=== PATIENT | female | born 1940 | race African-American/Black ===

== ENCOUNTER 2018-10-19 10:51 | Inpatient (IN) | payer OTHER ==
[2018-10-19 11:14] LABS: BASO % 0.5 % (0-2.0); EOS % 2.3 % (0-4.5); HEMATOCRIT 43.6 % (32.4-45.2); HEMOGLOBIN 14.1 GM/dL (10.7-15.3); LYMPH % 27.1 % (8-40); MCH 27.6 pg (25.7-33.7); MCHC 32.3 g/dl (32.0-36.0); MEAN CELL VOLUME 85.5 fl (80-96); MEAN PLT VOLUME 9.5 fl (7.5-11.1); MONO % 5.3 % (3.8-10.2); NEUT % 64.8 % (42.8-82.8); PLATELET COUNT 304 K/MM3 (134-434); RDW 13.2 % (11.6-15.6)
[2018-10-19 11:17] LABS: INR 0.91 (0.83-1.09); PROTHROMBIN TIME (PATIENT) 10.7 SEC (9.7-13.0)
--- NOTE | 2018-10-19 11:20 | PDOC ---
History of Present Illness - General Chief Complaint: CVA/TIA Stated Complaint: WEAKNESS, DIZZINESS Time Seen by Provider: 10/19/18 11:00 - History of Present Illness Initial Comments: 10/19/18 11:16 78yo F hx HTN, NIDDM presents to the ED with garbled speech and L sided weakness since waking up this morning. Last known normal was last night when she opened the door to their home for her daughter at 9pm. Daughter Yancy reports pt had complaint of room spinning dizziness last night but speech was normal, pt had no L sided weakness. No hx similar sxs. No hx afib. Reports mild global headache that has come on gradually since this AM. Reports L sided weakness is better now, but daughter notes speech has not improved. Denies cp, sob, fevers, chills, stiff neck, abd pain, LE edema, urinary sxs. FS 248. Past History - Past Medical History Allergies/Adverse Reactions: Allergies Allergy/AdvReac Type Severity Reaction Status Date / Time No Known Allergies Allergy Verified 10/19/18 11:03 Home Medications: Ambulatory Orders Hydrochlorothiazide [Hctz -] 25 mg PO DAILY 04/21/16 Metformin HCl [Glucophage] 1,000 mg PO DAILY 04/21/16 Metoprolol Succinate [Toprol Xl] 50 mg PO DAILY 04/21/16 COPD: No Diabetes: Yes HTN: Yes - Surgical History Abdominal Surgery: Yes (HERNIA) - Suicide/Smoking/Psychosocial Hx Smoking History: Never smoked Hx Alcohol Use: No Drug/Substance Use Hx: No Substance Use Type: None Review of Systems - Review of Systems Comments:: 10/19/18 11:28 GENERAL/CONSTITUTIONAL: No fever or chills. No weakness. HEAD, EYES, EARS, NOSE AND THROAT: No change in vision. No ear pain or discharge. No sore throat. GASTROINTESTINAL: No nausea, vomiting, diarrhea or constipation. GENITOURINARY: No dysuria, frequency, or change in urination. CARDIOVASCULAR: No chest pain or shortness of breath. RESPIRATORY: No cough, wheezing, or hemoptysis. MUSCULOSKELETAL: No joint or muscle swelling or pain. No neck or back pain. SKIN: No rash NEUROLOGIC: +headache, +vertigo, +garbled speech, +L sided weakness ENDOCRINE: No increased thirst. No abnormal weight change. HEMATOLOGIC/LYMPHATIC: No anemia, easy bleeding, or history of blood clots. ALLERGIC/IMMUNOLOGIC: No hives or skin allergy. *Physical Exam - Vital Signs Last Vital Signs Temp Pulse Resp BP Pulse Ox 97.9 F 78 16 236/88 H 99 10/19/18 11:00 10/19/18 11:00 10/19/18 11:00 10/19/18 11:00 10/19/18 11:00 - Physical Exam Comments: 10/19/18 11:40 GENERAL: Awake, alert, and fully oriented, in no acute distress HEAD: No signs of trauma EYES: PERRLA, EOMI, sclera anicteric, conjunctiva clear ENT: Auricles normal inspection, hearing grossly normal, nares patent, oropharynx clear without exudates. Moist mucosa NECK: Normal ROM, supple, no lymphadenopathy, JVD, or masses LUNGS: Breath sounds equal, clear to auscultation bilaterally. No wheezes, and no crackles HEART: Regular rate and rhythm, normal S1 and S2, no murmurs, rubs or gallops ABDOMEN: Soft, nontender, normoactive bowel sounds. No guarding, no rebound. No masses EXTREMITIES: Normal range of motion, no edema. No clubbing or cyanosis. No cords, erythema, or tenderness NEUROLOGICAL: +Word finding difficulty, +slurred speech, cranial nerves intact , negative pronator drift, 5/5 strength in all 4 extremities, normal sensation to light touch in all 4 extremities, normal cerebellar exam, normal gait, normal reflexes and tone SKIN: Warm, Dry, normal turgor, no rashes or lesions noted. NIH Stroke Scale - Last Known Well Date/Time & Onset Date Last Known Well: 10/18/18 Time Last Known Well: 21:00 - Initial Evaluation Level of consciousness: Alert Ask patient the month and their age: Answers both correctly Ask patient to open & close eyes; make fist and let go: Obeys both correctly Best gaze (horizontal eye movement): Normal Visual field testing: No visual field loss Facial paresis (Show teeth/raise eyebrows/close eyes tight): Minor paralysis ( flattened nasolabial fold, asymmetry on smiling) Motor Function: Left Arm: Normal Motor Function: Right Arm: Normal (extends arm 90 (or 45) degrees for 10 seconds without drift Motor Function: Left Leg: Normal (extends leg 30 degrees for 5 seconds without drift) Motor Function: Right Leg: Normal (extends leg 30 degrees for 5 seconds without drift) Limb Ataxia: No ataxia Sensory(Use pinprick test arms,legs,trunk,face/side to side): Normal Best language (Describe picture, name items, read sentences): Mild to moderate aphasia Dysarthria (read several words): Mild to moderate slurring of words Extinction and Inattention: No abnormality - Total Score NIH Stroke Scale Score: 3 Heart Score/ECG Review #1 10/19/18 11:44 Twelve-lead EKG was performed and reviewed by me. Normal sinus rhythm, rate 76. Normal axis. No ST elevations. Biphasic T waves in aVL and V4-V6. Critical Care Time/MDM Note - Medical Decision Making Note: 10/19/18 11:44 78yo hx HTN, DM presents with slurred speech, and L sided weakness that has since improved concerning for CVA vs TIA vs infection vs electrolyte abnormality. Vitals with HTN to 218/79. Exam with slurred speech and word finding difficulty, but strength equal b/l with no pronator drift. CTH negative , CTA done, read pending. Plan for labs, xr, ua, neuro c/s and admit vs transfer. 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 Garcia awaiting a call back 10/19/18 13:00 Pt had 9 beat run of Vtach, completely asymptomatic at the time Discussed with Dr. Pollard from cards who will evaluate Pt took her metoprolol last night as she usually does Dr. Garcia paged again, awaiting call back 10/19/18 13:[address] Garcia who is on his way in to evaluate 10/19/18 14:15 Dr. Garcia recommends lopressor 2.5mg IV for BP 199/99 Lopressor ordered and given Case admitted to Dr. Knight Case discussed in detail with admitting physician including history, physical exam and ancillary studies. Admitting physician has assumed care for the patient, will follow all pending diagnostics and will complete the evaluation and treatment. *DC/Admit/Observation/Transfer Diagnosis at time of Disposition: Cerebrovascular accident (CVA), V-tach, HTN (hypertension) - Discharge Dispostion Condition at time of disposition: Stable Decision to Admit order: Yes - Referrals Referrals: Gamaliel Blackwell MD [Primary Care Provider] - - Patient Instructions - Post Discharge Activity - Attestations Physician Attestion: 10/19/18 14:06 I, Dr. Tammy Barroso MD, attest that this document has been prepared under my direction and personally reviewed by me in its entirety. I further attest, that it accurately reflects all work, treatment, procedures and medical decision -making performed by me.
[2018-10-19] MEDS: SODIUM CHLORIDE 1,000 ML IV SCH ×2 (11:30→17:01)
[2018-10-19 11:39] LABS: ALBUMIN 3.7 g/dl (3.4-5.0); ALK PHOS 123 U/L (45-117); ANION GAP 9 MMOL/L (8-16); BILIRUBIN,TOTAL 0.4 mg/dL (0.2-1); BLOOD UREA NITROGEN 10 mg/dL (7-18); CALCIUM 9.3 mg/dL (8.5-10.1); CHLORIDE 97 mmol/L (98-107); CHOLESTEROL 282 mg/dL (50-200); CO2 31 mmol/L (21-32); CREATININE 0.8 mg/dL (0.55-1.3); GLUCOSE,RANDOM 242 mg/dL (74-106); HDL CHOLESTEROL 60 mg/dL (40-60); POTASSIUM 3.6 mmol/L (3.5-5.1); SGOT/AST 15 U/L (15-37); SGPT/ALT 19 U/L (13-61); SODIUM 136 mmol/L (136-145); TOT PROT 7.6 g/dl (6.4-8.2); TRIGLYCERIDES 220 mg/dL (0-150)
--- NOTE | 2018-10-19 12:17 | EKG ---
Test Reason : Blood Pressure : / mmHG Vent. Rate : 076 BPM Atrial Rate : 076 BPM P-R Int : 138 ms QRS Dur : 078 ms QT Int : 398 ms P-R-T Axes : 056 018 111 degrees QTc Int : 447 ms NORMAL SINUS RHYTHM VOLTAGE CRITERIA FOR LEFT VENTRICULAR HYPERTROPHY NONSPECIFIC T WAVE ABNORMALITY ABNORMAL ECG NO PREVIOUS ECGS AVAILABLE Confirmed by Sergo Russ ([id number]) on 10/19/2018 12:16:32 PM Referred By: Confirmed By:Sergo Russ
[2018-10-19] MEDS ORDERED: METOPROLOL TARTRATE 5 MG/5 ML VIAL ONE (14:12)
[2018-10-19] MEDS ORDERED: METOPROLOL TARTRATE 5 MG/5 ML VIAL IVPUSH ONE (14:26)
[2018-10-19 14:31] LABS: URINE APPEARANCE CLEAR; URINE BILIRUBIN NEGATIVE (<2.0 mg/dL); URINE COLOR STRAW; URINE GLUCOSE (UA) 3+ (NEGATIVE); URINE KETONE NEGATIVE (NEGATIVE); URINE LEUK ESTERASE 1+ (NEGATIVE); URINE NITRITE NEGATIVE (NEGATIVE); URINE PROTEIN 2+ (NEGATIVE); URINE UROBILINOGEN NEGATIVE mg/dL (0.2-1.0)
[2018-10-19 14:42] LABS: EPI CELLS RARE /HPF (FEW); URINE BACTERIA RARE /hpf (NONE SEEN); URINE HYALINE CAST 1 /lpf; URINE MUCUS RARE
[2018-10-19] MEDS ORDERED: ACETAMINOPHEN 325 MG TABLET (FP) PO PRN (14:43)
--- NOTE | 2018-10-19 14:52 | HP ---
Admitting History and Physical - Primary Care Physician PCP: Gamaliel Blackwell - Admission Chief Complaint: My leg was weak History of Present Illness: Ms Anita Dean is a very pleasant 78 year old female who comes in with a stroke. She was in her normal state of health last night. When she woke up this morning she noted that she was dizzy and had weakness in her L arm and leg. She lives with her daughter and her daughter noted slurred speech and a slight R sided facial droop. Because of this she came in. She denies fevers, chills, passing out, chest pain or pressure, shortness of breath, diarrhea, constipation , difficulty or pain on urination, or swelling. She did have one episode of non- bloody, non-bilious emesis on the ride here but that has resolved. History Source: Patient Limitations to Obtaining History: No Limitations - Past Medical History Cardiovascular: Yes: HTN Endocrine: Yes: Diabetes Mellitus - Past Surgical History Past Surgical History: Yes: (x2), Hernia Repair - Smoking History Smoking history: Never smoked - Alcohol/Substance Use Hx Alcohol Use: No History of Substance Use: reports: None - Social History Usual Living Arrangement: Yes: With Child ADL: Independent History of Recent Travel: No Home Medications - Allergies Allergies/Adverse Reactions: Allergies Allergy/AdvReac Type Severity Reaction Status Date / Time No Known Allergies Allergy Verified 10/19/18 11:03 - Home Medications Home Medications: Ambulatory Orders Hydrochlorothiazide [Hctz -] 25 mg PO DAILY 04/21/16 Metformin HCl [Glucophage] 1,000 mg PO DAILY 04/21/16 Metoprolol Succinate [Toprol Xl] 50 mg PO DAILY 04/21/16 Family Disease History - Family Disease History Family Disease History: CA: Mother Review of Systems Findings/Remarks: Full review of systems obtained, as per HPI and otherwise negative. Physical Examination Vital Signs: Vital Signs Temperature 36.6 C 10/19/18 11:00 Pulse Rate 67 10/19/18 14:43 Respiratory Rate 17 10/19/18 14:43 Blood Pressure 193/91 H 10/19/18 14:43 O2 Sat by Pulse Oximetry (%) 100 10/19/18 14:43 Constitutional: Yes: Well Nourished, No Distress, Calm Eyes: Yes: Conjunctiva Clear, EOM Intact, PERRL HENT: Yes: Atraumatic, Normocephalic Cardiovascular: Yes: Regular Rate and Rhythm. No: Gallop, Murmur, Rub Respiratory: Yes: Regular, CTA Bilaterally. No: Rales, Rhonchi, Wheezes Gastrointestinal: Yes: Normal Bowel Sounds, Soft. No: Distention, Tenderness Extremities: Yes: WNL Edema: No Neurological: Yes: Alert, Oriented ...Motor Strength: LUE (4/5), LLE (4/5) Labs: CBC, BMP 10/19/18 11:00 10/19/18 11:01 Imaging - Results Chest X-ray: Report Reviewed, Image Reviewed Cat Scan: Report Reviewed Problem List - Problems (1) Cerebrovascular accident (CVA) Assessment/Plan: -patient found to have acute CVA on CTA -outside the window for tPA -appreciate Dr Garcia's assistance and case discussed -admit to telemetry -PT/ST consults -start aspirin and lipitor -will order MRI Code(s): I63.9 - CEREBRAL INFARCTION, UNSPECIFIED Qualifiers: CVA mechanism: embolism Precerebral and cerebral artery: middle cerebral artery Laterality of affected vessel: right Qualified Code(s): I63.411 - Cerebral infarction due to embolism of right middle cerebral artery (2) HTN (hypertension) Assessment/Plan: -patient prescribed metoprolol 50mg bid -states takes it once a day -suspect has high blood pressure as an outpatient -significantly elevated here -given metoprolol 2.5mg IV x1 in the ED -will start metoprolol 5mg IV q4h prn SBP greater than 170 -will adjust per Dr Garcia's orders Code(s): I10 - ESSENTIAL (PRIMARY) HYPERTENSION (3) HLD (hyperlipidemia) Assessment/Plan: -elevated LDL -start full strength lipitor Code(s): E78.5 - HYPERLIPIDEMIA, UNSPECIFIED (4) V-tach Assessment/Plan: -run of v-tach seen on telemetry -currently sinus rhythm -cardiology consulted Code(s): I47.2 - VENTRICULAR TACHYCARDIA (5) Diabetes Assessment/Plan: -currently npo until seen by speech -coughed with drinking water on exam -when safe to swallow, diabetic diet -FSBS and SSI -check HgbA1c -on metformin as an outpatient Code(s): E11.9 - TYPE 2 DIABETES MELLITUS WITHOUT COMPLICATIONS
--- NOTE | 2018-10-19 15:14 | CON.NEURO ---
Consult Consult Specialty:: Jose Referred by:: ER Reason for Consultation:: CVA - History of Present Illness History of Present Illness: this is a 78-year-old right-handed Pashto-speaking female patient with present medical history significant for 1. Coronary artery disease. 2. Senile dementia. 3. Hypertension 4. Diabetes [id number] 5. Osteoarthritis Patient presents with to the hospital being brought by her daughter who found the patient with difficulty with the speech and questionable left arm weakness. Stroke protocol was initiated in the emergency room immediate CAT scan of the head revealed no evidence of acute [employer] pathology. Patient stroke scale was 3 Patient was not a candidate for thrombolysis for 2 reasons 1. Patient's last known normal was 6 PM October 18. 2. Left arm weakness was getting better according to the emergency room doctor and the family member. Patient's daughter still sees that the right facial droopiness. Patient was stabilized hemodynamically as her blood pressure was high.patient was in sinus rhythm patient was not on aspirin at home. In the emergency room patient was a poor historian most of the history was obtained from the daughter and the medical records. patient received 2.5 mg of Lopressor IV. Her mean arterial pressure was 1:30. Case was discussed with the emergency room doctor and the primary care physician onadmission that the patient is not a candidate fortertiary stroke care even with the results of the CT angiogram. - History Source History Provided By: Family Member, Medical Record Limitations to Obtaining History: Clinical Condition - Alcohol/Substance Use Hx Alcohol Use: No - Smoking History Smoking history: Never smoked Home Medications - Allergies Allergies/Adverse Reactions: Allergies Allergy/AdvReac Type Severity Reaction Status Date / Time No Known Allergies Allergy Verified 10/19/18 11:03 - Home Medications Home Medications: Ambulatory Orders Hydrochlorothiazide [Hctz -] 25 mg PO DAILY 04/21/16 Metformin HCl [Glucophage] 1,000 mg PO DAILY 04/21/16 Metoprolol Succinate [Toprol Xl] 50 mg PO DAILY 04/21/16 Family Disease History - Family Disease History Family History: Unable to Obtain Review of Systems - Review of Systems Constitutional: reports: No Symptoms Eyes: reports: No Symptoms Neurological: reports: No Symptoms Physical Exam-Neuro Vital Signs: Vital Signs Temperature 97.9 F 10/19/18 11:00 Pulse Rate 70 10/19/18 14:55 Respiratory Rate 17 10/19/18 14:55 Blood Pressure 162/80 10/19/18 14:55 O2 Sat by Pulse Oximetry (%) 100 10/19/18 14:55 Constitutional: Yes: Well Nourished Neck: Yes: WNL Labs: CBC, BMP 10/19/18 11:00 10/19/18 11:01 INR, PTT INR 0.91 (0.83-1.09) 10/19/18 11:00 - Neuro Exam Level Of Consciousness: Yes: Oriented to Person, Oriented to Place Eyes: Yes: PERRLA Speech: Other (more lingual dysarthria) Dominant Hand: Right Mini Mental Exam: 20 Cranial Nerves II-XII Intact: Yes Gag: Present DTR's: 1+ Left Bicep, 1+ Right Bicep, 1+ Left Brachioradialis, 1+ Right Brachioradialis Response to light touch: Normal Response to pain prick: Normal Response to temperature: Normal Response to vibration: Normal Motor Strength: 3/5: Left Arm, 4/5: Right Arm, Left Leg, Right Leg NIH Stroke Scale - Last Known Well Date/Time & Onset Date Last Known Well: 10/18/18 Time Last Known Well: 18:00 - Initial Evaluation Level of consciousness: Alert Ask patient the month and their age: Answers both correctly Ask patient to open & close eyes; make fist and let go: Obeys both correctly Best gaze (horizontal eye movement): Normal Visual field testing: No visual field loss Facial paresis (Show teeth/raise eyebrows/close eyes tight): Minor paralysis ( flattened nasolabial fold, asymmetry on smiling) Motor Function: Left Arm: Normal Motor Function: Right Arm: Normal (extends arm 90 (or 45) degrees for 10 seconds without drift Motor Function: Left Leg: Normal (extends leg 30 degrees for 5 seconds without drift) Motor Function: Right Leg: Normal (extends leg 30 degrees for 5 seconds without drift) Limb Ataxia: No ataxia Sensory(Use pinprick test arms,legs,trunk,face/side to side): Mild to moderate decrease in sensation Best language (Describe picture, name items, read sentences): No Aphasia Dysarthria (read several words): Mild to moderate slurring of words Extinction and Inattention: No abnormality - Total Score NIH Stroke Scale Score: 3 Imaging - Results Cat Scan: Image Reviewed Problem List - Problems (1) Cerebrovascular accident (CVA) Assessment/Plan: Stroke localization with this case is challenging given the fact that she has right facial droopiness with resolving left arm weakness and lingual dysarthria the combination patient points to a brainstem stroke. CAT scan of the head was reviewed Edward see an abnormal signal very faint at the siphon of the right carotid with the right MCA takeoff. Neurological differential diagnoses #1acute CVA rule out pontine stroke #2 stroke prevention. #3 dementia. #4 high cholesterol Plan 1. Admit to telemetry. 2. Review the images of the CAT scan with the radiologist. 3. Baby aspirin 81 mg once daily. 4.. Most saltlow-calorie diet. 5. IV fluid D5 half-normal. 6. Tight blood pressure control. 7. Carotid Doppler. 8. Echocardiogram. 9. start physical therapy. 10. Blood work for dementia. 11. Physical therapy. 12. Speech and swallow evaluation. 13. MRI of the brain with no contrast thank you very much for referring this patient for neurological consultation Code(s): I63.9 - CEREBRAL INFARCTION, UNSPECIFIED Qualifiers: CVA mechanism: embolism Precerebral and cerebral artery: middle cerebral artery Laterality of affected vessel: right Qualified Code(s): I63.411 - Cerebral infarction due to embolism of right middle cerebral artery
[2018-10-19] MEDS ORDERED: ROSUVASTATIN CA 10 MG TABLET (FP) PO ONE (15:22)
[2018-10-19 16:50] VITALS: BMI 26.4
[2018-10-19] MEDS: INSULIN SLIDING SCALE (NOVOLOG) 1 VIAL SQ SCH ×2 (17:05→21:45)
[2018-10-19] MEDS: METOPROLOL TARTRATE 5 MG/5 ML VIAL IVPUSH PRN ×2 (17:19→21:46)
[2018-10-19] MEDS: ATORVASTATIN CA 80 MG TABLET (FP) PO SCH (21:38)
[2018-10-19] MEDS ORDERED: cloNIDine HCL 0.1 MG TABLET PO ONE (22:50)
[2018-10-20 07:02] LABS: HEMATOCRIT 38.6 % (32.4-45.2); HEMOGLOBIN 12.2 GM/dL (10.7-15.3); MCHC 31.7 g/dl (32.0-36.0); MEAN CELL VOLUME 85.1 fl (80-96); MEAN PLT VOLUME 9.6 fl (7.5-11.1); PLATELET COUNT 251 K/MM3 (134-434); RBC 4.54 M/mm3 (3.60-5.2); RDW 13.1 % (11.6-15.6); WHITE BLOOD COUNT 7.6 K/mm3 (4.0-10.0)
[2018-10-20 07:21] LABS: ANION GAP 8 MMOL/L (8-16); BLOOD UREA NITROGEN 10 mg/dL (7-18); CALCIUM 9.1 mg/dL (8.5-10.1); CHLORIDE 99 mmol/L (98-107); CO2 31 mmol/L (21-32); CREATININE 0.6 mg/dL (0.55-1.3); GLUCOSE,RANDOM 184 mg/dL (74-106); MAGNESIUM 1.9 mg/dL (1.8-2.4); PHOSPHOROUS 3.6 mg/dL (2.5-4.9); POTASSIUM 3.5 mmol/L (3.5-5.1); SODIUM 138 mmol/L (136-145)
[2018-10-20] MEDS: INSULIN SLIDING SCALE (NOVOLOG) 1 VIAL SQ SCH ×4 (07:59→21:24)
--- NOTE | 2018-10-20 10:02 | CON.CARD ---
Consult Consult Specialty:: Cardiology Referred by:: Hospitalist Medicine Reason for Consultation:: Acute stroke - History of Present Illness Chief Complaint: Dysarthria and right facial droop History of Present Illness: Ms Anita Dean is a 78 year old female who comes in with a stroke. She woke up with dizziness and had weakness in her L arm and leg since resolved, along with slurred speech and a slight R sided facial droop which persists. She denies chest pain or pressure, near or true syncope, shortness of breath, orthopnea, PND or LE edema. BP remains elevated. Tele shows 9 beat NSVT. - History Source History Provided By: Family Member Limitations to Obtaining History: Language Barrier - Past Medical History Cardio/Vascular: Yes: HTN ...: No Endocrine: Yes: Diabetes Mellitus - Past Surgical History Past Surgical History: Yes: (x2), Hernia Repair - Alcohol/Substance Use Hx Alcohol Use: No History of Substance Use: reports: None - Smoking History Smoking history: Never smoked Have you smoked in the past 12 months: No Aproximately how many cigarettes per day: 0 - Social History ADL: Independent History of Recent Travel: No Home Medications - Allergies Allergies/Adverse Reactions: Allergies Allergy/AdvReac Type Severity Reaction Status Date / Time No Known Allergies Allergy Verified 10/19/18 11:03 - Home Medications Home Medications: Ambulatory Orders Hydrochlorothiazide [Hctz -] 25 mg PO DAILY 04/21/16 Metformin HCl [Glucophage] 1,000 mg PO DAILY 04/21/16 Metoprolol Succinate [Toprol Xl] 50 mg PO DAILY 04/21/16 Family Disease History - Family Disease History Family Disease History: CA: Mother Review of Systems - Review of Systems Neurological: reports: Change in Speech, Weakness Vital Signs: Vital Signs Temperature 98 F 10/20/18 09:00 Pulse Rate 71 10/20/18 09:00 Respiratory Rate 20 10/20/18 09:00 Blood Pressure 195/85 H 10/20/18 09:00 O2 Sat by Pulse Oximetry (%) 100 10/20/18 09:00 Constitutional: Yes: No Distress, Calm HENT: Yes: Other (Right facial droop) Neck: Yes: Supple Respiratory: Yes: Regular, CTA Bilaterally Gastrointestinal: Yes: Normal Bowel Sounds, Soft Cardiovascular: Yes: Regular Rate and Rhythm JVD: No Carotid Bruit: No Heart Sounds: Yes: S1, S2 Edema: No - Other Data Labs, Other Data: CBC, BMP 10/20/18 05:50 10/20/18 05:50 INR, PTT INR 0.91 (0.83-1.09) 10/19/18 11:00 Troponin, BNP 10/19/18 11:01 Troponin I < 0.02 Troponin, BNP 10/19/18 11:01 Troponin I < 0.02 NSR @ 76 LVH nonspec T wave changes Imaging - Results Chest X-ray: Report Reviewed (NAD) Cat Scan: Report Reviewed (HCT: No acute strokes or bleed CTA: No sig stenosis) Ultrasound: Pending Problem List - Problems (1) Cerebrovascular accident (CVA) Code(s): I63.9 - CEREBRAL INFARCTION, UNSPECIFIED Qualifiers: CVA mechanism: embolism Precerebral and cerebral artery: middle cerebral artery Laterality of affected vessel: right Qualified Code(s): I63.411 - Cerebral infarction due to embolism of right middle cerebral artery (2) Diabetes Code(s): E11.9 - TYPE 2 DIABETES MELLITUS WITHOUT COMPLICATIONS Qualifiers: Diabetes mellitus type: type 2 (3) HLD (hyperlipidemia) Code(s): E78.5 - HYPERLIPIDEMIA, UNSPECIFIED Qualifiers: Hyperlipidemia type: pure hypercholesterolemia Qualified Code(s): E78.00 - Pure hypercholesterolemia, unspecified; E78.0 - Pure hypercholesterolemia (4) HTN (hypertension) Code(s): I10 - ESSENTIAL (PRIMARY) HYPERTENSION Qualifiers: Hypertension type: essential hypertension Qualified Code(s): I10 - Essential (primary) hypertension (5) NSVT (nonsustained ventricular tachycardia) Code(s): I47.2 - VENTRICULAR TACHYCARDIA Assessment/Plan 1. Acute stroke, r/o pontine stroke 2. Hypertensive heart disease, BP not at goal 3. Type 2 DM 4. NSVT P: 1. F/u brain MRI, carotid U/S, telemetry to r/o PAF, echo to assess ventricular and valve fxn, check Ha1c 2. ASA 81 qd, Lipitor 80 qhs, start carvedilol 6.25 bid, eventual UMA-I/ARB as hemodynamics tolerate 3. Speech and swallow
[2018-10-20] MEDS: ASPIRIN COATED 81 MG TABLET.EC PO SCH (10:47)
--- NOTE | 2018-10-20 11:59 | PN ---
Physical Exam: SUBJECTIVE: Patient seen and examined at bedside. No overnight events. No new complaints. Feeling better today.Speech is more fluent. Denies CP,GRAY, SOB, abdominal pain, nausea or vomiting. OBJECTIVE: Vital Signs Period Temp Pulse Resp BP Sys/Jeffrey Pulse Ox Last 24 Hr 98 F-98.2 F 67-76 17-24 137-239/68-114 97-100 GENERAL: AAOx3, NAD EYES: PERRL, EOMI, sclera anicteric, conjunctiva clear. No ptosis. ENT:Moist mucous membranes. LUNGS:CTAB, no wheezes, no crackles, no accessory muscle use. HEART: RRR, S1, S2 without murmur, rub or gallop. ABDOMEN: Soft, NTND,NABS, no guarding, no rebound, no hepatosplenomegaly, no masses. EXTREMITIES: 2+ pulses, warm, well-perfused, no edema. NEUROLOGICAL: Cranial nerves II through XII grossly intact. Normal speech, gait not observed. PSYCH: Normal mood, normal affect. SKIN: Warm, dry, normal turgor, no rashes or lesions noted Laboratory Results - last 24 hr 10/19/18 10/19/18 10/19/18 11:00 14:10 15:59 WBC RBC Hgb Hct MCV MCH MCHC RDW Plt Count MPV ESR Sodium Potassium Chloride Carbon Dioxide Anion Gap BUN Creatinine Creat Clearance w eGFR POC Glucometer Random Glucose Hemoglobin A1c % Calcium Phosphorus Magnesium Urine Color Straw Urine Appearance Clear Urine pH 7.0 Ur Specific [place] 1.032 Urine Protein 2+ H Urine Glucose (UA) 3+ H Urine Ketones Negative Urine Blood Negative Urine Nitrite Negative Urine Bilirubin Negative Urine Urobilinogen Negative Ur Leukocyte Esterase 1+ H Urine WBC (Auto) 3 Urine RBC (Auto) 1 Ur Epithelial Cells Rare Urine Bacteria Rare Hyaline Casts 1 Urine Mucus Rare Blood Type O POSITIVE O POSITIVE Antibody Screen Negative 10/19/18 10/19/18 10/20/18 17:03 21:35 05:50 WBC 7.6 RBC 4.54 Hgb 12.2 Hct 38.6 MCV 85.1 MCH 27.0 MCHC 31.7 L RDW 13.1 Plt Count 251 MPV 9.6 ESR Sodium Potassium Chloride Carbon Dioxide Anion Gap BUN Creatinine Creat Clearance w eGFR POC Glucometer 168 130 Random Glucose Hemoglobin A1c % Calcium Phosphorus Magnesium Urine Color Urine Appearance Urine pH Ur Specific [place] Urine Protein Urine Glucose (UA) Urine Ketones Urine Blood Urine Nitrite Urine Bilirubin Urine Urobilinogen Ur Leukocyte Esterase Urine WBC (Auto) Urine RBC (Auto) Ur Epithelial Cells Urine Bacteria Hyaline Casts Urine Mucus Blood Type Antibody Screen 10/20/18 10/20/18 10/20/18 05:50 05:50 05:50 WBC RBC Hgb Hct MCV MCH MCHC RDW Plt Count MPV ESR 11 Sodium 138 Potassium 3.5 Chloride 99 Carbon Dioxide 31 Anion Gap 8 BUN 10 Creatinine 0.6 Creat Clearance w eGFR > 60 POC Glucometer Random Glucose 184 H Hemoglobin A1c % 10.6 H Calcium 9.1 Phosphorus 3.6 Magnesium 1.9 Urine Color Urine Appearance Urine pH Ur Specific [place] Urine Protein Urine Glucose (UA) Urine Ketones Urine Blood Urine Nitrite Urine Bilirubin Urine Urobilinogen Ur Leukocyte Esterase Urine WBC (Auto) Urine RBC (Auto) Ur Epithelial Cells Urine Bacteria Hyaline Casts Urine Mucus Blood Type Antibody Screen 10/20/18 05:50 WBC RBC Hgb Hct MCV MCH MCHC RDW Plt Count MPV ESR Sodium Potassium Chloride Carbon Dioxide Anion Gap BUN Creatinine Creat Clearance w eGFR POC Glucometer 191 Random Glucose Hemoglobin A1c % Calcium Phosphorus Magnesium Urine Color Urine Appearance Urine pH Ur Specific [place] Urine Protein Urine Glucose (UA) Urine Ketones Urine Blood Urine Nitrite Urine Bilirubin Urine Urobilinogen Ur Leukocyte Esterase Urine WBC (Auto) Urine RBC (Auto) Ur Epithelial Cells Urine Bacteria Hyaline Casts Urine Mucus Blood Type Antibody Screen Active Medications Generic Name Dose Route Start Last Admin Trade Name Freq PRN Reason Stop Dose Admin Acetaminophen 650 mg 10/19/18 14:43 Tylenol - PO Q4H PRN FEVER Aspirin 81 mg 10/20/18 10:00 10/20/18 10:47 Ecotrin - PO 81 mg DAILY JOCELINE Administration Atorvastatin Calcium 80 mg 10/19/18 22:00 10/19/18 21:38 Lipitor - PO 80 mg HS JOCELINE Administration Carvedilol 6.25 mg 10/20/18 11:00 Coreg - PO BID JOCELINE Sodium Chloride 1,000 mls @ 42 mls/hr 10/19/18 11:15 10/19/18 17:01 Normal Saline - IV 42 mls/hr ASDIR JOCELINE Administration Insulin Aspart 1 vial 10/19/18 16:30 10/20/18 07:59 Novolog Vial Sliding Scale - SQ Not Given ACHS JOCELINE Protocol Metoprolol Tartrate 5 mg 10/19/18 14:51 10/19/18 21:46 Lopressor Injection - IVPUSH 5 mg Q4H PRN Administration HYPERTENSION ASSESSMENT/PLAN: 78 yo F with PMHx of HTN, HLD and DM admitted for acute CVA. Problem List - Problems (1) Cerebrovascular accident (CVA) Assessment/Plan: * MRI pending. * ASA and Statin * Neurology consult appreciated. * Physical therapy * Speech therapy on board. (2) Diabetes Assessment/Plan: * ADA diet * BGM ACHS * ISS ACHS * HgbA1C >10 will need insulin therapy upon discharge. (3) HLD (hyperlipidemia) Assessment/Plan: continue Statin (4) HTN (hypertension) Assessment/Plan: * Carvedilol (Coreg -) 6.25 mg PO BID * Valsartan (Diovan -) 80 mg PO DAILY (5) NSVT (nonsustained ventricular tachycardia) Code(s): I47.2 - VENTRICULAR TACHYCARDIA Visit type - Emergency Visit Emergency Visit: Yes ED Registration Date: 10/19/18 Care time: The patient presented to the Emergency Department on the above date and was hospitalized for further evaluation of their emergent condition. - New Patient This patient is new to me today: Yes Date on this admission: 10/20/18 - Critical Care Critical Care patient: No
[2018-10-20] MEDS: CARVEDILOL 6.25 MG TABLET (FP) PO SCH ×2 (12:01→21:23)
[2018-10-20] MEDS: SODIUM CHLORIDE 1,000 ML IV SCH (12:12)
--- NOTE | 2018-10-20 12:45 | PN ---
Progress Note, Physician Chief Complaint: Ms Howard says she is hungry today. No cp, sob, n/v. - Current Medication List Current Medications: Active Medications Acetaminophen (Tylenol -) 650 mg PO Q4H PRN PRN Reason: FEVER Aspirin (Ecotrin -) 81 mg PO DAILY [facility] Last Admin: 10/20/18 10:47 Dose: 81 mg Atorvastatin Calcium (Lipitor -) 80 mg PO HS [facility] Last Admin: 10/19/18 21:38 Dose: 80 mg Carvedilol (Coreg -) 6.25 mg PO BID [facility] Last Admin: 10/20/18 12:01 Dose: 6.25 mg Sodium Chloride (Normal Saline -) 1,000 mls @ 42 mls/hr IV ASDIR [facility] Last Admin: 10/20/18 12:12 Dose: Not Given Insulin Aspart (Novolog Vial Sliding Scale -) 1 vial SQ [facility]; Protocol Last Admin: 10/20/18 12:11 Dose: Not Given Metoprolol Tartrate (Lopressor Injection -) 5 mg IVPUSH Q4H PRN PRN Reason: HYPERTENSION Last Admin: 10/19/18 21:46 Dose: 5 mg - Objective Vital Signs: Vital Signs Temperature 36.6 C 10/20/18 09:00 Pulse Rate 71 10/20/18 09:00 Respiratory Rate 20 10/20/18 09:00 Blood Pressure 195/85 H 10/20/18 09:00 O2 Sat by Pulse Oximetry (%) 100 10/20/18 09:00 Constitutional: Yes: Well Nourished, No Distress, Calm Cardiovascular: Yes: Regular Rate and Rhythm. No: Gallop, Murmur, Rub Respiratory: Yes: Regular, CTA Bilaterally. No: Rales, Rhonchi, Wheezes Gastrointestinal: Yes: Normal Bowel Sounds, Soft. No: Distention, Tenderness Extremities: Yes: WNL Edema: No Labs: CBC, BMP 10/20/18 05:50 10/20/18 05:50 INR, PTT INR 0.91 (0.83-1.09) 10/19/18 11:00 Problem List - Problems (1) Cerebrovascular accident (CVA) Code(s): I63.9 - CEREBRAL INFARCTION, UNSPECIFIED Qualifiers: CVA mechanism: embolism Precerebral and cerebral artery: middle cerebral artery Laterality of affected vessel: right Qualified Code(s): I63.411 - Cerebral infarction due to embolism of right middle cerebral artery (2) HTN (hypertension) Code(s): I10 - ESSENTIAL (PRIMARY) HYPERTENSION Qualifiers: Hypertension type: essential hypertension Qualified Code(s): I10 - Essential (primary) hypertension (3) HLD (hyperlipidemia) Code(s): E78.5 - HYPERLIPIDEMIA, UNSPECIFIED Qualifiers: Hyperlipidemia type: pure hypercholesterolemia Qualified Code(s): E78.00 - Pure hypercholesterolemia, unspecified; E78.0 - Pure hypercholesterolemia (4) V-tach Code(s): I47.2 - VENTRICULAR TACHYCARDIA (5) Diabetes Code(s): E11.9 - TYPE 2 DIABETES MELLITUS WITHOUT COMPLICATIONS Qualifiers: Diabetes mellitus type: type 2 Assessment/Plan (1) Cerebrovascular accident (CVA) Assessment/Plan: -MRI ordered -appreciate nuerology assistance -continue aspirin and lipitor -PT ordered -ST following Code(s): I63.9 - CEREBRAL INFARCTION, UNSPECIFIED Qualifiers: CVA mechanism: embolism Precerebral and cerebral artery: middle cerebral artery Laterality of affected vessel: right Qualified Code(s): I63.411 - Cerebral infarction due to embolism of right middle cerebral artery (2) HTN (hypertension) Assessment/Plan: -on coreg and diovan -monitor, will need improved control Code(s): I10 - ESSENTIAL (PRIMARY) HYPERTENSION (3) HLD (hyperlipidemia) Assessment/Plan: -elevated LDL -start full strength lipitor Code(s): E78.5 - HYPERLIPIDEMIA, UNSPECIFIED (4) V-tach Assessment/Plan: -appreciate cardiology assistance -has not recurred Code(s): I47.2 - VENTRICULAR TACHYCARDIA (5) Diabetes Assessment/Plan: -diabetic diet -SSI -Hgb A1c of 10, will need insulin as an outpatient Code(s): E11.9 - TYPE 2 DIABETES MELLITUS WITHOUT COMPLICATIONS
[2018-10-20] MEDS ORDERED: INSULIN SLIDING SCALE (NOVOLOG) 1 VIAL SQ ONE (16:26)
--- NOTE | 2018-10-20 16:32 | CONSULT ---
Admitting History and Physical - Past Medical History Cardiovascular: Yes: HTN ...: No Endocrine: Yes: Diabetes Mellitus - Past Surgical History Past Surgical History: Yes: (x2), Hernia Repair - Smoking History Smoking history: Never smoked Have you smoked in the past 12 months: No Aproximately how many cigarettes per day: 0 - Alcohol/Substance Use Hx Alcohol Use: No History of Substance Use: reports: None - Social History ADL: Independent History of Recent Travel: No History - Admission Reason For Visit: VENTRICULAR TACHYCARDIA, ELEVATED BLOOD PRESSURE, - Hearing Hearing: Normal Hearing Aide: No With Patient: No Speech Evaluation - Communication Primary Language: PAKISTANI Communication: Yes: Within Normal Limits (in Salvadorean), Language Barrier (Speaks only Salvadorean) Oral Expression Ability: Yes: No Impairment - Speech Production Apraxia: No Able to Make Needs Known: Yes: Mildly Impaired (secondary nto language barrier) Intelligibility: Yes: WNL - Speech Characteristics Voice Loudness: Normal Voice Pitch: Yes: Normal Voice Phonatory-based Quality: Yes: Normal Speech Pattern: Normal Nasal Resonance: Normal Articulation: Yes: Precise Dysfluency: Yes: Tonic Rate of Speech: Intact Voice Comment: Vocal quality is WNL - Language/Auditory Comprehension Follows: Yes: 1 Stage Simple Commands (WFL), 2 Stage Simple Commands (WFL) Observation: Able to respond to yes/no queries: Yes, Yes/No Confusion: No, Comprehends Conversational Speech: Yes (in Salvadorean ), Benefits from Slow Speech : Yes, Benefits from Repetiton: Yes, Benefits from Increased Volume of Speech: No - Language/Verbal Expression Able to Respond to Simple Queries: Yes: WNL (directives in Salvadorean) Able to Communicate Wants and Needs: Yes: WNL Functional Communication Status: Yes: WNL Aware of Errors: Yes Attempts to Correct Errors: Yes Use of Gestures: Yes Written Expression: not examined Oral Expression: WFL in [place]orean Reading Comprehension: not examined Calculations: not examined - Memory/Perception half-way Memory: Yes: WNL Short Term Memory: Yes: WNL - Swallow Evaluation/Bedside Assessment Current Nutritional Intake: NPO Oral Secretions: Yes: WFL Tracheostomy Present: No Patient on Ventilator: No Dentition: Yes: Edentulous Facial Symmetry at Rest: Symmetrical (resolved facial droop) Facial Symmetry on Retraction: Facial Droop Left (mild) Facial Movement: Controlled Sensation: Normal Facial Comment: WFL for speech and swallow purposes Jaw Position: Closed at Rest Against Resistance Opening: Normal Against Resistance Closing: Normal Pucker Lips: Normal Smile: Normal Lips, Comment: WFL for speech and swallow purposes Lingual Movement: Normal Lingual Speed of Movement: Normal Lingual Movement Strgth Against Opposition: Normal Lingual Movement Characteristics: Normal Lingual Comment: WF for speech and swallow purposes Soft Palate Description: Normal Color, Normal Arch Gag Reflex: Strong Bite Reflex: Present Velopharyngeal Movement: Normal Laryngeal Elevation: WFL Laryngeal Movement: Able to Palpate Needs Assistance: Yes Rate of Intake: WFL Bolus Size: WFL Labial Seal: WFL Chewing: WFL Oral Prep Time: WFL A-P Transit: WFL Timing of Swallow: WFL Coughing/Throat Clear: No Change in Voice: No Other Findings/Remarks: 78 yo female seen at bedside for swallow eval to r/o dysphagia. Pt is verbal in Salvadorean only, A&Ox2 cooperative. Pt admitted to [facility] for slurred speech, unilateral weakness and facial droop secondary to TIA. Facial droop and speech has resolved. PMHX includes diabetes. Oral motor exam is WNL with good airway protection. Current diet: NPO. Pt given po trials of puree and regular solids with minimal assistance revealed good acceptance, adequate bolus formation and transport. Pharyngeal swallows appears timely with no cough during or after the swallow. Thin liquid trials without assistance were unremarkable for aspiration at bedside at this time. Recommendations - Speech Evaluation, Impression/Plan Impression: Pt presents with improved speech language and articulation in Salvadorean. Pt is able to tolerate puree and regular solids with thin liquids at bedside without s/s of aspiration at this time. Appliance Service Technician Goals: tolerate the least restrictive diet without s/s of aspiration Short Term Goals: tolerate puree, regular soft solids with liquids without s/s of aspiration. - Dysphagia Impressions/Plan Swallowing Skills: WF Dysphagia Impressions: No Impairment *Silent aspiration: cannot be R/O at bedside Dysphagia Treatment Plan: Trial Feedings, Safe Rate Dysphagia Evaluation Summary: Pt is able to tolerate purees and soft regular solids with thin liquids. Minimal supervision is required during meals. Slow rate of intake and encourage thorough chewing. Meds can be given whole with water. Results given verbally to charge account identification clerk and pcp via chart. HEEL PADDER to follow up for diet tolerance. - Recommendations Diet Consistency: Regular (diabetic), 1 - 2 Soft Items (Diabetic) Medication Administration: Whole with water Liquids: Thin Liquids
--- NOTE | 2018-10-20 17:31 | ECHO ---
Name: SIDHULARISA MOSQUERA DARI Exam:Adult Echocardiogram Study Date: 10/20/2018 11:17 AM Age: 78 yrs Reason For Study: ACUTE CVA Height: 60 in Weight: 150 lb BSA: 1.7 m2 MMode/2D Measurements & Calculations IVSd: 1.1 cm Ao root diam: 3.1 cm LVIDd: 4.3 cm LA dimension: 3.2 cm LVIDs: 3.1 cm LVPWd: 0.96 cm EDV(Teich): 83.0 ml ESV(Teich): 37.7 ml Doppler Measurements & Calculations MV E max gurmeet: 78.5 cm/sec Ao V2 max: 150.3 cm/sec MV A max gurmeet: 99.7 cm/sec Ao max P.0 mmHg MV E/A: 0.79 MV dec time: 0.24 sec LV V1 max P.5 mmHg Med Peak E' Gurmeet: 4.0 cm/sec LV V1 max: 78.8 cm/sec Med E/e': 19.6 Lat Peak E' Gurmeet: 4.8 cm/sec Lat E/e': 16.4 Procedure A complete two-dimensional transthoracic echocardiogram was performed (2D, M-mode, Doppler and color flow Doppler). Left Ventricle The left ventricle is normal in size. Left ventricular systolic function is normal. Ejection Fraction = 60- 65%. E/A reversal and TDI reveals mildly impaired relaxation with elevated filling pressure (E/E' 19) . No regional wall motion abnormalities noted. Right Ventricle The right ventricle is normal size. The right ventricular systolic function is normal. Atria The left atrial size is normal. Right atrial size is normal. Mitral Valve There is mild to moderate mitral annular calcification. There is no mitral regurgitation noted. Tricuspid Valve The tricuspid valve is normal in structure and function. No tricuspid regurgitation. Aortic Valve There is mild aortic sclerosis.;. No aortic regurgitation is present. Pulmonic Valve The pulmonic valve is not well visualized. Great Vessels The aortic root is normal size. Pericardium/Pleura There is no pericardial effusion. Interpretation Summary The left ventricle is normal in size. Left ventricular systolic function is normal. No regional wall motion abnormalities noted. Ejection Fraction = 60-65%. E/A reversal and TDI reveals mildly impaired relaxation with elevated filling pressure (E/E' 19) The right ventricular systolic function is normal. The left atrial size is normal. Right atrial size is normal. There is mild to moderate mitral annular calcification. There is mild aortic sclerosis.; No significant valvular regurgitations are seen Previous study is not available for comparison Jaciel John MD 10/20/2018 05:31 PM
--- NOTE | 2018-10-20 18:43 | PN ---
Progress Note, Physician History of Present Illness: eevents noted in chart review patient was seen on telemetry patient was sleeping no family at the bedside. Neurologically with no event feels tired still with speech alteration. Noted to tired MRI of the brain was reviewed report is not available I noted and abnormal signal on the DWI images it's consistent with an acute stroke in the medulla/ brainstem stroke consistent with the my initial assessment. - Current Medication List Current Medications: Active Medications Acetaminophen (Tylenol -) 650 mg PO Q4H PRN PRN Reason: FEVER Aspirin (Ecotrin -) 81 mg PO DAILY [facility] Last Admin: 10/20/18 10:47 Dose: 81 mg Atorvastatin Calcium (Lipitor -) 80 mg PO HS [facility] Last Admin: 10/19/18 21:38 Dose: 80 mg Carvedilol (Coreg -) 6.25 mg PO BID [facility] Last Admin: 10/20/18 12:01 Dose: 6.25 mg Sodium Chloride (Normal Saline -) 1,000 mls @ 42 mls/hr IV ASDIR [facility] Last Admin: 10/20/18 12:12 Dose: Not Given Insulin Aspart (Novolog Vial Sliding Scale -) 1 vial SQ [facility]; Protocol Last Admin: 10/20/18 17:07 Dose: 4 units Metoprolol Tartrate (Lopressor Injection -) 5 mg IVPUSH Q4H PRN PRN Reason: HYPERTENSION Last Admin: 10/19/18 21:46 Dose: 5 mg Valsartan (Diovan -) 80 mg PO DAILY [facility] - Objective Vital Signs: Vital Signs Temperature 97.8 F 10/20/18 13:45 Pulse Rate 74 10/20/18 13:45 Respiratory Rate 16 10/20/18 13:45 Blood Pressure 185/85 H 10/20/18 13:45 O2 Sat by Pulse Oximetry (%) 100 10/20/18 09:00 Constitutional: Yes: Well Nourished Eyes: Yes: WNL Neurological: Yes: Alert, Oriented, Babinski positive ...Motor Strength: WNL Labs: CBC, BMP 10/20/18 05:50 10/20/18 05:50 INR, PTT INR 0.91 (0.83-1.09) 10/19/18 11:00 Problem List - Problems (1) Cerebrovascular accident (CVA) Assessment/Plan: brainstem stroke confirmed on the MRI Risks include age,, hypertension, coronary artery disease Plan 1. Review the results of the echocardiogram. 2. Out of bed to chair. 3. Discharge planning to acute rehabilitation. 4. Continue the antiplatelet therapy. 5. Target cholesterol less than 170. Code(s): I63.9 - CEREBRAL INFARCTION, UNSPECIFIED Qualifiers: CVA mechanism: embolism Precerebral and cerebral artery: middle cerebral artery Laterality of affected vessel: right Qualified Code(s): I63.411 - Cerebral infarction due to embolism of right middle cerebral artery
[2018-10-20] MEDS: VALSARTAN 80 MG TABLET (UD) PO SCH (18:57)
[2018-10-20] MEDS: ATORVASTATIN CA 80 MG TABLET (FP) PO SCH (21:23)
[2018-10-20] MEDS: METOPROLOL TARTRATE 5 MG/5 ML VIAL IVPUSH PRN (21:24)
[2018-10-21] MEDS: METOPROLOL TARTRATE 5 MG/5 ML VIAL IVPUSH PRN ×2 (01:14→05:59)
[2018-10-21] MEDS ORDERED: amLODIPine BESYLATE 5 MG TABLET (FP) PO ONE (04:02)
[2018-10-21 06:38] LABS: BASO % 0.7 % (0-2.0); EOS % 3.8 % (0-4.5); HEMATOCRIT 41.2 % (32.4-45.2); HEMOGLOBIN 12.8 GM/dL (10.7-15.3); LYMPH % 33.9 % (8-40); MCH 26.8 pg (25.7-33.7); MCHC 31.1 g/dl (32.0-36.0); MEAN CELL VOLUME 86.1 fl (80-96); MEAN PLT VOLUME 9.5 fl (7.5-11.1); MONO % 7.6 % (3.8-10.2); PLATELET COUNT 263 K/MM3 (134-434); RBC 4.78 M/mm3 (3.60-5.2); RDW 13.2 % (11.6-15.6)
[2018-10-21 07:02] LABS: ANION GAP 10 MMOL/L (8-16); BLOOD UREA NITROGEN 14 mg/dL (7-18); CALCIUM 8.6 mg/dL (8.5-10.1); CHLORIDE 101 mmol/L (98-107); CO2 29 mmol/L (21-32); CREATININE 0.8 mg/dL (0.55-1.3); GLUCOSE,RANDOM 148 mg/dL (74-106); POTASSIUM 3.9 mmol/L (3.5-5.1); SODIUM 140 mmol/L (136-145)
[2018-10-21] MEDS: CARVEDILOL 6.25 MG TABLET (FP) PO SCH (09:06)
[2018-10-21] MEDS: VALSARTAN 80 MG TABLET (UD) PO SCH ×2 (09:06→21:07)
[2018-10-21] MEDS: ASPIRIN COATED 81 MG TABLET.EC PO SCH (09:06)
[2018-10-21] MEDS: INSULIN SLIDING SCALE (NOVOLOG) 1 VIAL SQ SCH ×4 (10:41→21:10)
--- NOTE | 2018-10-21 11:44 | PN ---
Progress Note, DIE PRESSER - Note Progress Note: Selected Entries 10/20/18 10/20/18 10/20/18 02:00 05:30 09:00 Breakfast Supper Temperature 98.2 F 98.0 F 98 F 10/20/18 10/20/18 10/20/18 13:45 18:00 22:00 Breakfast Supper 50% Temperature 97.8 F 98.1 F 98.2 F 10/21/18 10/21/18 10/21/18 02:00 06:00 08:59 Breakfast Supper Temperature 97.8 F 98 F 97.4 F L 10/21/18 10:39 Breakfast 50% Supper Temperature Laboratory Tests 10/21/18 06:00 WBC 8.0 Pt reports speech production back to baseline. 3 oz water test (-).No dysphagia reported or observed. Tolerating diet well. o x 3.
--- NOTE | 2018-10-21 12:24 | PN ---
Progress Note (short form) - Note Progress Note: Chief Complaint: Events noted, notes reviewed, denies any chest pain or dyspnea History of Present Illness: Seen and examined on telemetry. Events noted, notes reviewed, denies any chest pain or dyspnea No reported new neurological deficits Echocardiography revealed normal LV size and function with no significant valvular pathology - Current Medication List Current Medications Acetaminophen (Tylenol -) 650 mg PO Q4H PRN PRN Reason: FEVER Aspirin (Ecotrin -) 81 mg PO DAILY [facility] Last Admin: 10/21/18 09:06 Dose: 81 mg Atorvastatin Calcium (Lipitor -) 80 mg PO HS [facility] Last Admin: 10/20/18 21:23 Dose: 80 mg Carvedilol (Coreg -) 6.25 mg PO BID [facility] Last Admin: 10/21/18 09:06 Dose: 6.25 mg Sodium Chloride (Normal Saline -) 1,000 mls @ 42 mls/hr IV ASDIR [facility] Last Admin: 10/20/18 12:12 Dose: Not Given Insulin Aspart (Novolog Vial Sliding Scale -) 1 vial SQ [facility]; Protocol Last Admin: 10/21/18 11:58 Dose: 4 units Metoprolol Tartrate (Lopressor Injection -) 5 mg IVPUSH Q4H PRN PRN Reason: HYPERTENSION Last Admin: 10/21/18 05:59 Dose: 5 mg Valsartan (Diovan -) 80 mg PO DAILY [facility] Last Admin: 10/21/18 09:06 Dose: 80 mg Review of Systems - Review of Systems Constitutional: denies: Chills or Fever Cardiovascular: as noted above Gastrointestinal: denies: Nausea, Vomiting, Diarrhea, Constipation or Abdominal Pain Genitourinary: No symptoms reported Neurological: As noted above Vital Signs: Last Vital Signs Temp Pulse Resp BP Pulse Ox 97.4 F L 74 18 160/84 98 10/21/18 08:59 10/21/18 08:59 10/21/18 09:00 10/21/18 08:59 10/21/18 09:00 Intake & Output 10/18/18 10/19/18 10/20/18 10/21/18 23:59 23:59 23:59 23:59 Intake Total 444 924 854 Output Total 300 501 Balance 144 423 854 Weight 140 lb Constitutional: No Distress, Calm Neck: Supple Negative JVD Respiratory: Clear to A&P Bilaterally Cardiovascular: S1 S2 Regular Rate and Rhythm Gastrointestinal: Soft Benign Normal Bowel Sounds Ext: No Edema Labs: CBC, BMP 10/21/18 06:00 10/21/18 06:00 Hepatic Panel Total Bilirubin 0.4 mg/dL (0.2-1) 10/19/18 11:01 AST 15 U/L (15-37) 10/19/18 11:01 ALT 19 U/L (13-61) 10/19/18 11:01 Alkaline Phosphatase 123 U/L (45-117) H 10/19/18 11:01 Albumin 3.7 g/dl (3.4-5.0) 10/19/18 11:01 INR, PTT INR 0.91 (0.83-1.09) 10/19/18 11:00 Assessment/Plan ASSESSMENT: 1. Acute stroke 2. Hypertensive cardiovascular disease, labile blood pressure not at goal 3. DM 4. Hypercholesterolemia 5. NSVT PLAN: 1. Continue ASA 2. Continue Lipitor 3. Continue Carvedilol and titrate dosage as needed and as tolerated 4. Continue Diovan and titrate dosage as needed and as tolerated 5. Recommended extended monitoring as outpatient to rule out PAF as potential culprit to the above noted presentation Maia Schulz M.D.
--- NOTE | 2018-10-21 16:01 | PN ---
Physical Exam: SUBJECTIVE: Patient seen and examined at bedside.Hypertensive overnight SBP 207. She is feeling better today. Speech and strength continue to improve. Denies Cp, GRAY,SOB, abdominal pain, nausea or vomiting. OBJECTIVE: Vital Signs Period Temp Pulse Resp BP Sys/Jeffrey Pulse Ox Last 24 Hr 97.4 F-98.2 F 64-77 16-20 159-207/75-92 98-100 GENERAL: AAOx3, NAD EYES: PERRL, EOMI, sclera anicteric, conjunctiva clear. No ptosis. ENT:Moist mucous membranes. LUNGS:CTAB, no wheezes, no crackles, no accessory muscle use. HEART: RRR, S1, S2 without murmur, rub or gallop. ABDOMEN: Soft, NTND,NABS, no guarding, no rebound, no hepatosplenomegaly, no masses. EXTREMITIES: 2+ pulses, warm, well-perfused, no edema. NEUROLOGICAL: Cranial nerves II through XII grossly intact. Normal speech, gait not observed. PSYCH: Normal mood, normal affect. SKIN: Warm, dry, normal turgor, no rashes or lesions noted Laboratory Results - last 24 hr 10/19/18 10/20/18 10/20/18 15:59 16:50 20:47 WBC RBC Hgb Hct MCV MCH MCHC RDW Plt Count MPV Absolute Neuts (auto) Neutrophils % Lymphocytes % Monocytes % Eosinophils % Basophils % Nucleated RBC % Sodium Potassium Chloride Carbon Dioxide Anion Gap BUN Creatinine Creat Clearance w eGFR POC Glucometer 225 215 Random Glucose Calcium Homocysteine 11.3 10/21/18 10/21/18 10/21/18 05:34 06:00 06:00 WBC 8.0 RBC 4.78 Hgb 12.8 Hct 41.2 MCV 86.1 MCH 26.8 MCHC 31.1 L RDW 13.2 Plt Count 263 MPV 9.5 Absolute Neuts (auto) 4.3 Neutrophils % 54.0 Lymphocytes % 33.9 D Monocytes % 7.6 Eosinophils % 3.8 Basophils % 0.7 Nucleated RBC % 0 Sodium 140 Potassium 3.9 Chloride 101 Carbon Dioxide 29 Anion Gap 10 BUN 14 Creatinine 0.8 Creat Clearance w eGFR > 60 POC Glucometer 150 Random Glucose 148 H Calcium 8.6 Homocysteine 10/21/18 11:14 WBC RBC Hgb Hct MCV MCH MCHC RDW Plt Count MPV Absolute Neuts (auto) Neutrophils % Lymphocytes % Monocytes % Eosinophils % Basophils % Nucleated RBC % Sodium Potassium Chloride Carbon Dioxide Anion Gap BUN Creatinine Creat Clearance w eGFR POC Glucometer 232 Random Glucose Calcium Homocysteine Active Medications Generic Name Dose Route Start Last Admin Trade Name Freq PRN Reason Stop Dose Admin Acetaminophen 650 mg 10/19/18 14:43 Tylenol - PO Q4H PRN FEVER Aspirin 81 mg 10/20/18 10:00 10/21/18 09:06 Ecotrin - PO 81 mg DAILY JOCELINE Administration Atorvastatin Calcium 80 mg 10/19/18 22:00 10/20/18 21:23 Lipitor - PO 80 mg HS JOCELINE Administration Carvedilol 12.5 mg 10/21/18 12:36 Coreg - PO BID JOCELINE Sodium Chloride 1,000 mls @ 42 mls/hr 10/19/18 11:15 10/20/18 12:12 Normal Saline - IV Not Given ASDIR JOCELINE Insulin Aspart 1 vial 10/19/18 16:30 10/21/18 11:58 Novolog Vial Sliding Scale - SQ 4 units ACHS JOCELINE Administration Protocol Metoprolol Tartrate 5 mg 10/19/18 14:51 10/21/18 05:59 Lopressor Injection - IVPUSH 5 mg Q4H PRN Administration HYPERTENSION Valsartan 80 mg 10/21/18 22:00 Diovan - PO BID [facility] ASSESSMENT/PLAN: 78 yo F with pmhx of HTN, HLD , DM presents for slurred speech and weakness found to have acute CVA. Problem List - Problems (1) Cerebrovascular accident (CVA) Assessment/Plan: * MRI shows left paramedian pontine infarct and Right temporal infarct * ASA and Statin * Neurology consult appreciated. * Physical therapy * Patient will need rehab counter caser on board. * Speech therapy on board. (2) Diabetes Assessment/Plan: * ADA diet * BGM ACHS * ISS ACHS * HgbA1C >10 will need insulin therapy upon discharge. (3) HLD (hyperlipidemia) Assessment/Plan: continue Statin (4) HTN (hypertension) Assessment/Plan: Diovan increased 2/2 overnight hypertensive episode. * Carvedilol (Coreg -) 6.25 mg PO BID * Valsartan (Diovan -) 80 mg PO BID (5) NSVT (nonsustained ventricular tachycardia) Code(s): I47.2 - VENTRICULAR TACHYCARDIA Visit type - Emergency Visit Emergency Visit: Yes ED Registration Date: 10/19/18 Care time: The patient presented to the Emergency Department on the above date and was hospitalized for further evaluation of their emergent condition. - New Patient This patient is new to me today: Yes Date on this admission: 10/21/18 - Critical Care Critical Care patient: No
--- NOTE | 2018-10-21 16:46 | PN ---
Progress Note, Physician Chief Complaint: Ms Howard is without complaint. No cp, sob, n/v. Eager to go home. - Current Medication List Current Medications: Active Medications Acetaminophen (Tylenol -) 650 mg PO Q4H PRN PRN Reason: FEVER Aspirin (Ecotrin -) 81 mg PO DAILY [facility] Last Admin: 10/21/18 09:06 Dose: 81 mg Atorvastatin Calcium (Lipitor -) 80 mg PO HS [facility] Last Admin: 10/20/18 21:23 Dose: 80 mg Carvedilol (Coreg -) 12.5 mg PO BID [facility] Sodium Chloride (Normal Saline -) 1,000 mls @ 42 mls/hr IV ASDIR [facility] Last Admin: 10/20/18 12:12 Dose: Not Given Insulin Aspart (Novolog Vial Sliding Scale -) 1 vial SQ [facility]; Protocol Last Admin: 10/21/18 11:58 Dose: 4 units Insulin Detemir (Levemir Vial) 10 units SQ HS [facility] Metoprolol Tartrate (Lopressor Injection -) 5 mg IVPUSH Q4H PRN PRN Reason: HYPERTENSION Last Admin: 10/21/18 05:59 Dose: 5 mg Valsartan (Diovan -) 80 mg PO BID [facility] - Objective Vital Signs: Vital Signs Temperature 36.4 C 10/21/18 13:33 Pulse Rate 77 10/21/18 13:33 Respiratory Rate 16 10/21/18 13:33 Blood Pressure 159/78 10/21/18 13:33 O2 Sat by Pulse Oximetry (%) 98 10/21/18 09:00 Constitutional: Yes: Well Nourished, No Distress, Calm Cardiovascular: Yes: Regular Rate and Rhythm. No: Gallop, Murmur, Rub Respiratory: Yes: Regular, CTA Bilaterally. No: Rales, Rhonchi, Wheezes Gastrointestinal: Yes: Normal Bowel Sounds, Soft. No: Distention, Tenderness Extremities: Yes: WNL Edema: No Labs: CBC, BMP 10/21/18 06:00 10/21/18 06:00 INR, PTT INR 0.91 (0.83-1.09) 10/19/18 11:00 Problem List - Problems (1) Cerebrovascular accident (CVA) Code(s): I63.9 - CEREBRAL INFARCTION, UNSPECIFIED Qualifiers: CVA mechanism: embolism Precerebral and cerebral artery: middle cerebral artery Laterality of affected vessel: right Qualified Code(s): I63.411 - Cerebral infarction due to embolism of right middle cerebral artery (2) HTN (hypertension) Code(s): I10 - ESSENTIAL (PRIMARY) HYPERTENSION Qualifiers: Hypertension type: essential hypertension Qualified Code(s): I10 - Essential (primary) hypertension (3) HLD (hyperlipidemia) Code(s): E78.5 - HYPERLIPIDEMIA, UNSPECIFIED Qualifiers: Hyperlipidemia type: pure hypercholesterolemia Qualified Code(s): E78.00 - Pure hypercholesterolemia, unspecified; E78.0 - Pure hypercholesterolemia (4) V-tach Code(s): I47.2 - VENTRICULAR TACHYCARDIA (5) Diabetes Code(s): E11.9 - TYPE 2 DIABETES MELLITUS WITHOUT COMPLICATIONS Qualifiers: Diabetes mellitus type: type 2 Assessment/Plan (1) Cerebrovascular accident (CVA) Assessment/Plan: -MRI ordered reviewed and showing 2 strokes -appreciate neurology assistance -continue aspirin and statin -continue blood pressure and glucose control Code(s): I63.9 - CEREBRAL INFARCTION, UNSPECIFIED Qualifiers: CVA mechanism: embolism Precerebral and cerebral artery: middle cerebral artery Laterality of affected vessel: right Qualified Code(s): I63.411 - Cerebral infarction due to embolism of right middle cerebral artery (2) HTN (hypertension) Assessment/Plan: -not controlled -coreg and diovan increased by cardiology -if improved, possible discharge tomorrow Code(s): I10 - ESSENTIAL (PRIMARY) HYPERTENSION (3) HLD (hyperlipidemia) Assessment/Plan: -continue lipitor 80mg qhs Code(s): E78.5 - HYPERLIPIDEMIA, UNSPECIFIED (4) V-tach Assessment/Plan: -appreciate cardiology assistance -has not recurred Code(s): I47.2 - VENTRICULAR TACHYCARDIA (5) Diabetes Assessment/Plan: -diabetic diet -SSI -will start levemir 10 units qhs here -will need insulin as an outpatient Code(s): E11.9 - TYPE 2 DIABETES MELLITUS WITHOUT COMPLICATIONS Dispo -plan for discharge tomorrow if blood pressure is controlled
--- NOTE | 2018-10-21 17:43 | PN ---
Progress Note, Physician History of Present Illness: eevents noted in chart reviewed No major present on the cardiac cath technologist Looks and feels better Family member at the bedside MRI confirmed the presence of the brainstem stroke - Current Medication List Current Medications: Active Medications Acetaminophen (Tylenol -) 650 mg PO Q4H PRN PRN Reason: FEVER Aspirin (Ecotrin -) 81 mg PO DAILY [facility] Last Admin: 10/21/18 09:06 Dose: 81 mg Atorvastatin Calcium (Lipitor -) 80 mg PO HS [facility] Last Admin: 10/20/18 21:23 Dose: 80 mg Carvedilol (Coreg -) 12.5 mg PO BID [facility] Sodium Chloride (Normal Saline -) 1,000 mls @ 42 mls/hr IV ASDIR [facility] Last Admin: 10/20/18 12:12 Dose: Not Given Insulin Aspart (Novolog Vial Sliding Scale -) 1 vial SQ [facility]; Protocol Last Admin: 10/21/18 17:21 Dose: 2 units Insulin Detemir (Levemir Vial) 10 units SQ HS [facility] Metoprolol Tartrate (Lopressor Injection -) 5 mg IVPUSH Q4H PRN PRN Reason: HYPERTENSION Last Admin: 10/21/18 05:59 Dose: 5 mg Valsartan (Diovan -) 80 mg PO BID [facility] - Objective Vital Signs: Vital Signs Temperature 97.6 F 10/21/18 13:33 Pulse Rate 77 10/21/18 13:33 Respiratory Rate 16 10/21/18 13:33 Blood Pressure 159/78 10/21/18 13:33 O2 Sat by Pulse Oximetry (%) 98 10/21/18 09:00 Musculoskeletal: Yes: Back Pain Neurological: Yes: Alert, Oriented, Babinski negative ...Motor Strength: WNL Labs: CBC, BMP 10/21/18 06:00 10/21/18 06:00 INR, PTT INR 0.91 (0.83-1.09) 10/19/18 11:00 Problem List - Problems (1) Cerebrovascular accident (CVA) Assessment/Plan: I preferred the patient to go to subacute rehabilitation Continue antiplatelet treatment Agreed to the cardiology for extended monitoring after discharge Tight blood cholesterol control with a target less than 170 Code(s): I63.9 - CEREBRAL INFARCTION, UNSPECIFIED Qualifiers: CVA mechanism: embolism Precerebral and cerebral artery: middle cerebral artery Laterality of affected vessel: right Qualified Code(s): I63.411 - Cerebral infarction due to embolism of right middle cerebral artery
[2018-10-21] MEDS ORDERED: INSULIN (LEVEMIR) 100 UNITS/ML UNITS SQ ONE (20:59)
[2018-10-21] MEDS: CARVEDILOL 12.5 MG TABLET (FP) PO SCH (21:07)
[2018-10-21] MEDS: ATORVASTATIN CA 80 MG TABLET (FP) PO SCH (21:07)
[2018-10-21] MEDS: SODIUM CHLORIDE 1,000 ML IV SCH (21:07)
[2018-10-21] MEDS: INSULIN (LEVEMIR) 100 UNITS/ML UNITS SQ SCH (21:09)
[2018-10-22] MEDS: METOPROLOL TARTRATE 5 MG/5 ML VIAL IVPUSH PRN ×4 (01:21→15:55)
[2018-10-22] MEDS: INSULIN SLIDING SCALE (NOVOLOG) 1 VIAL SQ SCH ×4 (05:59→21:04)
[2018-10-22 06:49] LABS: BASO % 0.6 % (0-2.0); EOS % 3.5 % (0-4.5); HEMATOCRIT 38.2 % (32.4-45.2); HEMOGLOBIN 11.9 GM/dL (10.7-15.3); LYMPH % 25.9 % (8-40); MCH 26.8 pg (25.7-33.7); MCHC 31.3 g/dl (32.0-36.0); MEAN CELL VOLUME 85.7 fl (80-96); MEAN PLT VOLUME 9.6 fl (7.5-11.1); MONO % 8.1 % (3.8-10.2); NEUT % 61.9 % (42.8-82.8); PLATELET COUNT 243 K/MM3 (134-434); RBC 4.45 M/mm3 (3.60-5.2); RDW 13.2 % (11.6-15.6); WHITE BLOOD COUNT 8.5 K/mm3 (4.0-10.0)
[2018-10-22 08:07] LABS: ALBUMIN 2.7 g/dl (3.4-5.0); ALK PHOS 91 U/L (45-117); ANION GAP 9 MMOL/L (8-16); BILIRUBIN,TOTAL 0.5 mg/dL (0.2-1); BLOOD UREA NITROGEN 10 mg/dL (7-18); CALCIUM 8.5 mg/dL (8.5-10.1); CHLORIDE 104 mmol/L (98-107); CO2 29 mmol/L (21-32); CREATININE 0.6 mg/dL (0.55-1.3); GLUCOSE,RANDOM 107 mg/dL (74-106); POTASSIUM 3.5 mmol/L (3.5-5.1); SGOT/AST 12 U/L (15-37); SGPT/ALT 16 U/L (13-61); SODIUM 142 mmol/L (136-145); TOT PROT 5.7 g/dl (6.4-8.2)
[2018-10-22] MEDS: CARVEDILOL 12.5 MG TABLET (FP) PO SCH (09:54)
[2018-10-22] MEDS: VALSARTAN 80 MG TABLET (UD) PO SCH ×2 (09:54→21:02)
[2018-10-22] MEDS: ASPIRIN COATED 81 MG TABLET.EC PO SCH (09:54)
--- NOTE | 2018-10-22 11:48 | PN ---
Progress Note, Physician History of Present Illness: Previously reported weakness in her L arm and leg, slurred speech and slight R sided facial droop since resolved She denies chest pain or pressure, near or true syncope, shortness of breath, orthopnea, PND or LE edema. BP remains elevated. Tele shows PAT, but no PAF. - Current Medication List Current Medications: Active Medications Acetaminophen (Tylenol -) 650 mg PO Q4H PRN PRN Reason: FEVER Aspirin (Ecotrin -) 81 mg PO DAILY [facility] Last Admin: 10/22/18 09:54 Dose: 81 mg Atorvastatin Calcium (Lipitor -) 80 mg PO HS [facility] Last Admin: 10/21/18 21:07 Dose: 80 mg Carvedilol (Coreg -) 12.5 mg PO BID [facility] Last Admin: 10/22/18 09:54 Dose: 12.5 mg Sodium Chloride (Normal Saline -) 1,000 mls @ 42 mls/hr IV ASDIR [facility] Last Admin: 10/21/18 21:07 Dose: 42 mls/hr Insulin Aspart (Novolog Vial Sliding Scale -) 1 vial SQ [facility]; Protocol Last Admin: 10/22/18 11:41 Dose: 2 units Insulin Detemir (Levemir Vial) 10 units SQ [facility] Last Admin: 10/21/18 21:09 Dose: 10 units Metoprolol Tartrate (Lopressor Injection -) 5 mg IVPUSH Q4H PRN PRN Reason: HYPERTENSION Last Admin: 10/22/18 11:40 Dose: 5 mg Valsartan (Diovan -) 80 mg PO BID [facility] Last Admin: 10/22/18 09:54 Dose: 80 mg - Objective Vital Signs: Vital Signs Temperature 97.8 F 10/22/18 09:00 Pulse Rate 78 10/22/18 11:40 Respiratory Rate 18 10/22/18 09:00 Blood Pressure 183/83 H 10/22/18 11:40 O2 Sat by Pulse Oximetry (%) 95 10/22/18 09:00 Constitutional: Yes: No Distress, Calm, Thin Neck: Yes: Supple Cardiovascular: Yes: Regular Rate and Rhythm Respiratory: Yes: Regular, Diminished Gastrointestinal: Yes: Normal Bowel Sounds, Soft Edema: No Labs: CBC, BMP 10/22/18 06:00 10/22/18 06:00 INR, PTT INR 0.91 (0.83-1.09) 10/19/18 11:00 - ....Imaging EKG: Report Reviewed (Tele: PAT) Problem List - Problems (1) Cerebrovascular accident (CVA) Code(s): I63.9 - CEREBRAL INFARCTION, UNSPECIFIED Qualifiers: CVA mechanism: embolism Precerebral and cerebral artery: middle cerebral artery Laterality of affected vessel: right Qualified Code(s): I63.411 - Cerebral infarction due to embolism of right middle cerebral artery (2) Diabetes Code(s): E11.9 - TYPE 2 DIABETES MELLITUS WITHOUT COMPLICATIONS Qualifiers: Diabetes mellitus type: type 2 (3) HLD (hyperlipidemia) Code(s): E78.5 - HYPERLIPIDEMIA, UNSPECIFIED Qualifiers: Hyperlipidemia type: pure hypercholesterolemia Qualified Code(s): E78.00 - Pure hypercholesterolemia, unspecified; E78.0 - Pure hypercholesterolemia (4) HTN (hypertension) Code(s): I10 - ESSENTIAL (PRIMARY) HYPERTENSION Qualifiers: Hypertension type: essential hypertension Qualified Code(s): I10 - Essential (primary) hypertension (5) NSVT (nonsustained ventricular tachycardia) Code(s): I47.2 - VENTRICULAR TACHYCARDIA (6) Paroxysmal atrial tachycardia Code(s): I47.1 - SUPRAVENTRICULAR TACHYCARDIA Assessment/Plan Echocardiography revealed normal LV size and function with no significant valvular pathology 10/20/2018 Acute left pontine stroke, right posterior temporal stroke 1. Acute left pontine stroke, right posterior temporal stroke 2. Hypertensive heart disease, BP not at goal 3. Type 2 DM 4. Hyperlipidemia 5. NSVT/PAT P: 1. Telemetry w/o PAF 2. ASA 81 qd, Lipitor 80 qhs, increase carvedilol 25 bid, Diovan 80 bid as hemodynamics tolerate 3. Recommended extended monitoring as outpatient to rule out PAF as potential culprit to the above noted presentation 4. D/c planning to subacute rehabilitation
[2018-10-22] MEDS: SODIUM CHLORIDE 1,000 ML IV SCH ×2 (12:14→17:37)
--- NOTE | 2018-10-22 14:34 | PN ---
Physical Exam: SUBJECTIVE: Patient seen and examined at bedside. No overnight events. No new complaints. Feeling better today.Speech is more fluent. Denies CP,GRAY, SOB, abdominal pain, nausea or vomiting. OBJECTIVE: Vital Signs Period Temp Pulse Resp BP Sys/Jeffrey Pulse Ox Last 24 Hr 97.8 F-98.3 F 68-80 18-18 165-197/73-92 95-97 GENERAL: AAOx3, NAD EYES: PERRL, EOMI, sclera anicteric, conjunctiva clear. No ptosis. ENT:Moist mucous membranes. LUNGS:CTAB, no wheezes, no crackles, no accessory muscle use. HEART: RRR, S1, S2 without murmur, rub or gallop. ABDOMEN: Soft, NTND,NABS, no guarding, no rebound, no hepatosplenomegaly, no masses. EXTREMITIES: 2+ pulses, warm, well-perfused, no edema. NEUROLOGICAL: Cranial nerves II through XII grossly intact. Normal speech, gait not observed. PSYCH: Normal mood, normal affect. SKIN: Warm, dry, normal turgor, no rashes or lesions noted Laboratory Results - last 24 hr 10/21/18 10/21/18 10/22/18 16:53 21:05 05:33 WBC RBC Hgb Hct MCV MCH MCHC RDW Plt Count MPV Absolute Neuts (auto) Neutrophils % Lymphocytes % Monocytes % Eosinophils % Basophils % Nucleated RBC % Sodium Potassium Chloride Carbon Dioxide Anion Gap BUN Creatinine Creat Clearance w eGFR POC Glucometer 156 188 98 Random Glucose Calcium Total Bilirubin AST ALT Alkaline Phosphatase Total Protein Albumin 10/22/18 10/22/18 10/22/18 06:00 06:00 11:28 WBC 8.5 RBC 4.45 Hgb 11.9 Hct 38.2 MCV 85.7 MCH 26.8 MCHC 31.3 L RDW 13.2 Plt Count 243 MPV 9.6 Absolute Neuts (auto) 5.3 Neutrophils % 61.9 Lymphocytes % 25.9 D Monocytes % 8.1 Eosinophils % 3.5 Basophils % 0.6 Nucleated RBC % 0 Sodium 142 Potassium 3.5 Chloride 104 Carbon Dioxide 29 Anion Gap 9 BUN 10 Creatinine 0.6 Creat Clearance w eGFR > 60 POC Glucometer 175 Random Glucose 107 H Calcium 8.5 Total Bilirubin 0.5 AST 12 L ALT 16 Alkaline Phosphatase 91 Total Protein 5.7 L Albumin 2.7 L Active Medications Generic Name Dose Route Start Last Admin Trade Name Freq PRN Reason Stop Dose Admin Acetaminophen 650 mg 10/19/18 14:43 Tylenol - PO Q4H PRN FEVER Aspirin 81 mg 10/20/18 10:00 10/22/18 09:54 Ecotrin - PO 81 mg DAILY JOCELINE Administration Atorvastatin Calcium 80 mg 10/19/18 22:00 10/21/18 21:07 Lipitor - PO 80 mg HS JOCELINE Administration Carvedilol 12.5 mg 10/21/18 12:36 10/22/18 09:54 Coreg - PO 12.5 mg BID JOCELINE Administration Sodium Chloride 1,000 mls @ 42 mls/hr 10/19/18 11:15 10/22/18 12:14 Normal Saline - IV Not Given ASDIR [facility] Insulin Aspart 1 vial 10/19/18 16:30 10/22/18 11:41 Novolog Vial Sliding Scale - SQ 2 units ACHS JOCELINE Administration Protocol Insulin Detemir 10 units 10/21/18 22:00 10/21/18 21:09 Levemir Vial SQ 10 units HS JOCELINE Administration Metoprolol Tartrate 5 mg 10/19/18 14:51 10/22/18 11:40 Lopressor Injection - IVPUSH 5 mg Q4H PRN Administration HYPERTENSION Valsartan 80 mg 10/21/18 22:00 10/22/18 09:54 Diovan - PO 80 mg BID JOCELINE Administration ASSESSMENT/PLAN: 78 yo F with PMHx of HTN, HLD and DM admitted for acute CVA. Problem List - Problems (1) Cerebrovascular accident (CVA) Assessment/Plan: * MRI shows left paramedian pontine infarct and Right temporal infarct * ASA and Statin * Neurology consult appreciated. * Physical therapy walked with her; minimal assist walked 125 ft. * Not candidate for rehab- will send home with outpatient PT. * Speech therapy on board. * She does not have transportation until Saturday. (2) Diabetes Assessment/Plan: * ADA diet * BGM ACHS * ISS ACHS * HgbA1C >10 will need insulin therapy upon discharge. (3) HLD (hyperlipidemia) Assessment/Plan: continue Statin (4) HTN (hypertension) Assessment/Plan: BP remains elevated. Coreg increased to 12.5 BID * Carvedilol (Coreg -) 12.5 mg PO BID * Valsartan (Diovan -) 80 mg PO BID (5) NSVT (nonsustained ventricular tachycardia) Code(s): I47.2 - VENTRICULAR TACHYCARDIA Visit type - Emergency Visit Emergency Visit: Yes ED Registration Date: 10/19/18 Care time: The patient presented to the Emergency Department on the above date and was hospitalized for further evaluation of their emergent condition. - New Patient This patient is new to me today: No - Critical Care Critical Care patient: No
--- NOTE | 2018-10-22 15:17 | PN ---
Teaching Attending Note Name of Resident: Nabeel Guzmán ATTENDING PHYSICIAN STATEMENT I saw and evaluated the patient. I reviewed the resident's note and discussed the case with the resident. I agree with the resident's findings and plan as documented. SUBJECTIVE; Feels better. No new weakness. Ambulated well. OBJECTIVE: No FND with fair MS. ASSESSMENT AND PLAN: Agree with a/p above by resident. Not eligible for Acute /Sub-acute rehab. Would do d/c planning for home with Home or Outpt PT.
[2018-10-22] MEDS ORDERED: CARVEDILOL 12.5 MG TABLET (FP) PO ONE (16:07)
[2018-10-22] MEDS: ATORVASTATIN CA 80 MG TABLET (FP) PO SCH (21:02)
[2018-10-22] MEDS: CARVEDILOL 25 MG TABLET (FP) PO SCH (21:02)
[2018-10-22] MEDS: INSULIN (LEVEMIR) 100 UNITS/ML UNITS SQ SCH (21:04)
[2018-10-23] MEDS: METOPROLOL TARTRATE 5 MG/5 ML VIAL IVPUSH PRN ×2 (00:34→06:44)
[2018-10-23] MEDS: INSULIN SLIDING SCALE (NOVOLOG) 1 VIAL SQ SCH ×4 (06:16→21:41)
[2018-10-23] MEDS ORDERED: hydrALAZINE HCL 20 MG/ML VIAL IVPUSH ONE (09:45)
[2018-10-23] MEDS: HYDROCHLOROTHIAZIDE 25 MG TABLET (FP) PO SCH (09:55)
[2018-10-23] MEDS: VALSARTAN 80 MG TABLET (UD) PO SCH ×2 (09:55→21:38)
[2018-10-23] MEDS: amLODIPine BESYLATE 5 MG TABLET (FP) PO SCH (09:55)
[2018-10-23] MEDS: ASPIRIN COATED 81 MG TABLET.EC PO SCH (09:55)
[2018-10-23] MEDS: CARVEDILOL 25 MG TABLET (FP) PO SCH ×2 (09:55→21:38)
--- NOTE | 2018-10-23 10:26 | PN ---
Physical Exam: SUBJECTIVE: Patient seen and examined at bedside. No new complaints. BP remained high overnight. She feels ok. Denies CP,GRAY, SOB, abdominal pain, nausea or vomiting. OBJECTIVE: Vital Signs Period Temp Pulse Resp BP Sys/Jeffrey Pulse Ox Last 24 Hr 97.7 F-98.4 F 67-79 18-18 180-199/74-98 97 GENERAL: AAOx3, NAD EYES: PERRL, EOMI, sclera anicteric, conjunctiva clear. No ptosis. ENT:Moist mucous membranes. LUNGS:CTAB, no wheezes, bibasilar fine crackles. no accessory muscle use. HEART: RRR, S1, S2 without murmur, rub or gallop. ABDOMEN: Soft, NTND,NABS, no guarding, no rebound, no hepatosplenomegaly, no masses. EXTREMITIES: 2+ pulses, warm, well-perfused, no edema. NEUROLOGICAL: Cranial nerves II through XII grossly intact. Normal speech, gait not observed. PSYCH: Normal mood, normal affect. SKIN: Warm, dry, normal turgor, no rashes or lesions noted Laboratory Results - last 24 hr 10/22/18 10/22/18 10/22/18 11:28 16:44 21:01 POC Glucometer 175 194 207 10/23/18 06:04 POC Glucometer 124 Active Medications Generic Name Dose Route Start Last Admin Trade Name Freq PRN Reason Stop Dose Admin Acetaminophen 650 mg 10/19/18 14:43 Tylenol - PO Q4H PRN FEVER Amlodipine Besylate 5 mg 10/23/18 10:00 10/23/18 09:55 Norvasc - PO 5 mg DAILY JOCELINE Administration Aspirin 81 mg 10/20/18 10:00 10/23/18 09:55 Ecotrin - PO 81 mg DAILY JOCELINE Administration Atorvastatin Calcium 80 mg 10/19/18 22:00 10/22/18 21:02 Lipitor - PO 80 mg HS JOCELINE Administration Carvedilol 25 mg 10/22/18 22:00 10/23/18 09:55 Coreg - PO 25 mg BID JOCELINE Administration Hydrochlorothiazide 25 mg 10/23/18 10:00 10/23/18 09:55 Hctz - PO 25 mg DAILY JOCELINE Administration Insulin Aspart 1 vial 10/19/18 16:30 10/23/18 06:16 Novolog Vial Sliding Scale - SQ Not Given ACHS [facility] Protocol Insulin Detemir 10 units 10/21/18 22:00 10/22/18 21:04 Levemir Vial SQ 10 units HS JOCELINE Administration Metoprolol Tartrate 5 mg 10/19/18 14:51 10/23/18 06:44 Lopressor Injection - IVPUSH 5 mg Q4H PRN Administration HYPERTENSION Valsartan 160 mg 10/23/18 09:46 10/23/18 09:55 Diovan - PO 160 mg BID JOCELINE Administration ASSESSMENT/PLAN: 78 yo F with PMHx of HTN, HLD and DM admitted for acute CVA. Problem List - Problems (1) Cerebrovascular accident (CVA) Assessment/Plan: * MRI shows left paramedian pontine infarct and Right temporal infarct * ASA and Statin * Neurology consult appreciated. * Physical therapy walked with her; minimal assist walked 125 ft. yesterday * Not candidate for rehab- will send home with outpatient PT. * Speech therapy on board. * She does not have transportation until Saturday. (2) HTN (hypertension) Assessment/Plan: BP remains elevated. * Cardiology consult appreciated. MEdication adjusted as below: * Carvedilol (Coreg -) 25mg PO BID * Valsartan (Diovan -) 160 PO BID * Amlodipine Besylate (Norvasc -) 5 mg POCarvedilol (Coreg -) 25 mg PO BID * Hydrochlorothiazide (Hctz -) 25 mg PO DAILY * crackles heard on exam will obtain stat CXR r/o fluid overload. (3) Diabetes Assessment/Plan: * ADA diet * BGM ACHS * ISS ACHS * HgbA1C >10 will need insulin therapy upon discharge. (4) HLD (hyperlipidemia) Assessment/Plan: continue Statin Visit type - Emergency Visit Emergency Visit: Yes ED Registration Date: 10/19/18 Care time: The patient presented to the Emergency Department on the above date and was hospitalized for further evaluation of their emergent condition. - New Patient This patient is new to me today: No - Critical Care Critical Care patient: No
--- NOTE | 2018-10-23 11:20 | PN ---
Progress Note (short form) - Note Progress Note: Chief Complaint: Events noted, notes reviewed, denies any chest pain or dyspnea , complaining of headache, elevated blood pressure noted/uncontrolled hypertension History of Present Illness: Seen and examined on telemetry. Events noted, notes reviewed, denies any chest pain or dyspnea, complaining of headache, elevated blood pressure noted/ uncontrolled hypertension Dose of Diovan increased, added HCTZ and Norvasc, and given Hydralazine IV Echocardiography revealed normal LV size and function with no significant valvular pathology - Current Medication List Current Medications Acetaminophen (Tylenol -) 650 mg PO Q4H PRN PRN Reason: FEVER Amlodipine Besylate (Norvasc -) 5 mg PO DAILY [facility] Last Admin: 10/23/18 09:55 Dose: 5 mg Aspirin (Ecotrin -) 81 mg PO DAILY [facility] Last Admin: 10/23/18 09:55 Dose: 81 mg Atorvastatin Calcium (Lipitor -) 80 mg PO [facility] Last Admin: 10/22/18 21:02 Dose: 80 mg Carvedilol (Coreg -) 25 mg PO BID [facility] Last Admin: 10/23/18 09:55 Dose: 25 mg Hydrochlorothiazide (Hctz -) 25 mg PO DAILY [facility] Last Admin: 10/23/18 09:55 Dose: 25 mg Insulin Aspart (Novolog Vial Sliding Scale -) 1 vial SQ [facility]; Protocol Last Admin: 10/23/18 06:16 Dose: Not Given Insulin Detemir (Levemir Vial) 10 units SQ [facility] Last Admin: 10/22/18 21:04 Dose: 10 units Metoprolol Tartrate (Lopressor Injection -) 5 mg IVPUSH Q4H PRN PRN Reason: HYPERTENSION Last Admin: 10/23/18 06:44 Dose: 5 mg Valsartan (Diovan -) 160 mg PO BID [facility] Last Admin: 10/23/18 09:55 Dose: 160 mg Review of Systems - Review of Systems Constitutional: denies: Chills or Fever Cardiovascular: as noted above Gastrointestinal: denies: Nausea, Vomiting, Diarrhea, Constipation or Abdominal Pain Genitourinary: No symptoms reported Neurological: As noted above Vital Signs: Last Vital Signs Temp Pulse Resp BP Pulse Ox 98.3 F 67 18 181/79 H 97 10/23/18 06:00 10/23/18 06:44 10/23/18 06:00 10/23/18 06:44 10/22/18 20:44 Intake & Output 10/20/18 10/21/18 10/22/18 10/23/18 23:59 23:59 23:59 23:59 Intake Total 924 1464 762 462 Output Total 501 Balance 423 1464 762 462 Weight 140 lb Constitutional: No Distress, Calm Neck: Supple Negative JVD Respiratory: Clear to A&P Bilaterally Cardiovascular: S1 S2 Regular Rate and Rhythm Gastrointestinal: Soft Benign Normal Bowel Sounds Ext: No Edema Labs: CBC, BMP 10/22/18 06:00 10/22/18 06:00 Hepatic Panel Total Bilirubin 0.5 mg/dL (0.2-1) 10/22/18 06:00 AST 12 U/L (15-37) L 10/22/18 06:00 ALT 16 U/L (13-61) 10/22/18 06:00 Alkaline Phosphatase 91 U/L (45-117) 10/22/18 06:00 Albumin 2.7 g/dl (3.4-5.0) L 10/22/18 06:00 INR, PTT INR 0.91 (0.83-1.09) 10/19/18 11:00 Assessment/Plan ASSESSMENT: 1. Acute stroke 2. Hypertensive cardiovascular disease, labile blood pressure not at goal 3. DM 4. Hypercholesterolemia 5. NSVT PLAN: 1. Continue ASA 2. Continue Lipitor 3. Continue Carvedilol 4. Continue Diovan and titrate dosage, as outlined above 5. Add HCTZ and Norvasc as outlined above (given IV Hydralazine) 6. As outlined in prior notes recommended extended monitoring as outpatient to rule out PAF as potential culprit to the above noted presentation/stroke Maia Schulz M.D.
--- NOTE | 2018-10-23 14:26 | PN ---
Teaching Attending Note Name of Resident: Nabeel Guzmán ATTENDING PHYSICIAN STATEMENT I saw and evaluated the patient. I reviewed the resident's note and discussed the case with the resident. I agree with the resident's findings and plan as documented. SUBJECTIVE:weakness is slowly improving. denies CP, SOB, fever, chills, GRAY, N/V/ C/D OBJECTIVE: Last Vital Signs Temp Pulse Resp BP Pulse Ox 98.0 F 70 18 162/71 97 10/23/18 14:01 10/23/18 14:01 10/23/18 14:01 10/23/18 14:01 10/23/18 10:00 General NAD CV S1 S2 RRR no murmur/rub/gallops Lungs CTA B/L no wheezing/rales/rhonchi ASSESSMENT AND PLAN: 78yo F with PMH HTN, DM, who presented wtih leg weakness and found to have CVA, course has been complicated with HTN urgency 1. HTN urgency- labile BP. medications adjusted by cardio this am. started on norvasc and HCTZ and valsartan now increased. will cont to monitor BP. 2. Mutliple CVA- clinically improving. started on asa/statin. seen by neuro. ambulated 125ft iwth PT and does not require JOHN 3. DM- controlled. A1c 10.6. cont iss and BGM. hold oral agents 4. DVT ppx- unclear why not on ppx. will start lovenox 5. d/c planning once BP is optimized. plan to d/c home
[2018-10-23] MEDS: ATORVASTATIN CA 80 MG TABLET (FP) PO SCH (21:38)
[2018-10-23] MEDS: INSULIN (LEVEMIR) 100 UNITS/ML UNITS SQ SCH (21:42)
[2018-10-24] MEDS: INSULIN SLIDING SCALE (NOVOLOG) 1 VIAL SQ SCH ×4 (06:09→21:50)
[2018-10-24 06:54] LABS: BASO % 0.4 % (0-2.0); EOS % 3.6 % (0-4.5); HEMATOCRIT 38.7 % (32.4-45.2); HEMOGLOBIN 12.3 GM/dL (10.7-15.3); LYMPH % 15.7 % (8-40); MCH 27.1 pg (25.7-33.7); MCHC 31.8 g/dl (32.0-36.0); MEAN CELL VOLUME 85.2 fl (80-96); MEAN PLT VOLUME 9.5 fl (7.5-11.1); MONO % 5.7 % (3.8-10.2); NEUT % 74.6 % (42.8-82.8); PLATELET COUNT 256 K/MM3 (134-434); RBC 4.53 M/mm3 (3.60-5.2); RDW 13.2 % (11.6-15.6); WHITE BLOOD COUNT 9.5 K/mm3 (4.0-10.0)
[2018-10-24 07:32] LABS: ALBUMIN 2.9 g/dl (3.4-5.0); ALK PHOS 95 U/L (45-117); ANION GAP 7 MMOL/L (8-16); BILIRUBIN,TOTAL 0.4 mg/dL (0.2-1); BLOOD UREA NITROGEN 17 mg/dL (7-18); CALCIUM 8.8 mg/dL (8.5-10.1); CHLORIDE 99 mmol/L (98-107); CO2 31 mmol/L (21-32); CREATININE 0.9 mg/dL (0.55-1.3); GLUCOSE,RANDOM 145 mg/dL (74-106); POTASSIUM 3.7 mmol/L (3.5-5.1); SGOT/AST 16 U/L (15-37); SGPT/ALT 16 U/L (13-61); SODIUM 136 mmol/L (136-145)
[2018-10-24] MEDS ORDERED: PT OWN MED DRAWER 7, Y5N ONE (10:09)
[2018-10-24] MEDS: ENOXAPARIN NA (PORCINE) 40 MG/0.4 ML DISP.SYRIN SQ SCH (10:11)
[2018-10-24] MEDS: amLODIPine BESYLATE 5 MG TABLET (FP) PO SCH (10:12)
[2018-10-24] MEDS: HYDROCHLOROTHIAZIDE 25 MG TABLET (FP) PO SCH (10:12)
[2018-10-24] MEDS: VALSARTAN 80 MG TABLET (UD) PO SCH ×2 (10:12→21:49)
[2018-10-24] MEDS: ASPIRIN COATED 81 MG TABLET.EC PO SCH (10:12)
[2018-10-24] MEDS: CARVEDILOL 25 MG TABLET (FP) PO SCH ×2 (10:12→21:50)
--- NOTE | 2018-10-24 10:41 | PN ---
Progress Note (short form) - Note Progress Note: Chief Complaint: Events noted, notes reviewed, denies any chest pain or dyspnea , denies any headaches, blood pressure noted better controlled History of Present Illness: Seen and examined on telemetry. Events noted, notes reviewed, denies any chest pain or dyspnea, denies any headaches, blood pressure noted better controlled Echocardiography revealed normal LV size and function with no significant valvular pathology - Current Medication List Current Medications Acetaminophen (Tylenol -) 650 mg PO Q4H PRN PRN Reason: FEVER Amlodipine Besylate (Norvasc -) 5 mg PO DAILY [facility] Last Admin: 10/24/18 10:12 Dose: 5 mg Aspirin (Ecotrin -) 81 mg PO DAILY [facility] Last Admin: 10/24/18 10:12 Dose: 81 mg Atorvastatin Calcium (Lipitor -) 80 mg PO HS [facility] Last Admin: 10/23/18 21:38 Dose: 80 mg Carvedilol (Coreg -) 25 mg PO BID [facility] Last Admin: 10/24/18 10:12 Dose: 25 mg Enoxaparin Sodium (Lovenox -) 40 mg SQ DAILY [facility] Last Admin: 10/24/18 10:11 Dose: 40 mg Hydrochlorothiazide (Hctz -) 25 mg PO DAILY [facility] Last Admin: 10/24/18 10:12 Dose: 25 mg Insulin Aspart (Novolog Vial Sliding Scale -) 1 vial SQ [facility]; Protocol Last Admin: 10/24/18 06:09 Dose: Not Given Insulin Detemir (Levemir Vial) 10 units SQ [facility] Last Admin: 10/23/18 21:42 Dose: 10 units Metoprolol Tartrate (Lopressor Injection -) 5 mg IVPUSH Q4H PRN PRN Reason: HYPERTENSION Last Admin: 10/23/18 06:44 Dose: 5 mg Valsartan (Diovan -) 160 mg PO BID [facility] Last Admin: 10/24/18 10:12 Dose: 160 mg Review of Systems - Review of Systems Constitutional: denies: Chills or Fever Cardiovascular: as noted above Gastrointestinal: denies: Nausea, Vomiting, Diarrhea, Constipation or Abdominal Pain Genitourinary: No symptoms reported Neurological: As noted above Vital Signs: Last Vital Signs Temp Pulse Resp BP Pulse Ox 98.0 F 78 20 150/74 96 10/24/18 06:51 10/24/18 06:51 10/24/18 06:51 10/24/18 06:51 10/23/18 21:00 Intake & Output 10/21/18 10/22/18 10/23/18 10/24/18 23:59 23:59 23:59 23:59 Intake Total 1464 762 462 360 Balance 1464 762 462 360 Weight 140 lb Constitutional: No Distress, Calm Neck: Supple Negative JVD Respiratory: Clear to A&P Bilaterally Cardiovascular: S1 S2 Regular Rate and Rhythm Gastrointestinal: Soft Benign Normal Bowel Sounds Ext: No Edema Labs: CBC, BMP 10/24/18 06:00 10/24/18 06:00 Assessment/Plan ASSESSMENT: 1. Acute stroke 2. Hypertensive cardiovascular disease, labile blood pressure at goal 3. DM 4. Hypercholesterolemia 5. NSVT PLAN: 1. Continue ASA 2. Continue Lipitor 3. Continue Carvedilol 4. Continue Diovan 5. Continue HCTZ 6. Continue Norvasc 7. As outlined in prior notes recommended extended monitoring (possible ILR) as outpatient to rule out PAF as potential culprit to the above noted presentation/ stroke Maia Schulz M.D.
--- NOTE | 2018-10-24 10:59 | PN ---
Progress Note, Physician History of Present Illness: events noted in the chart reviewed Patient seen on telemetry Awake alert oriented 3 Normal attention span follow commands normally Left hand is better right facial droop is better Patient is on antiplatelets and cholesterol medication - Current Medication List Current Medications: Active Medications Acetaminophen (Tylenol -) 650 mg PO Q4H PRN PRN Reason: FEVER Amlodipine Besylate (Norvasc -) 5 mg PO DAILY [facility] Last Admin: 10/24/18 10:12 Dose: 5 mg Aspirin (Ecotrin -) 81 mg PO DAILY [facility] Last Admin: 10/24/18 10:12 Dose: 81 mg Atorvastatin Calcium (Lipitor -) 80 mg PO HS [facility] Last Admin: 10/23/18 21:38 Dose: 80 mg Carvedilol (Coreg -) 25 mg PO BID [facility] Last Admin: 10/24/18 10:12 Dose: 25 mg Enoxaparin Sodium (Lovenox -) 40 mg SQ DAILY [facility] Last Admin: 10/24/18 10:11 Dose: 40 mg Hydrochlorothiazide (Hctz -) 25 mg PO DAILY [facility] Last Admin: 10/24/18 10:12 Dose: 25 mg Insulin Aspart (Novolog Vial Sliding Scale -) 1 vial SQ [facility]; Protocol Last Admin: 10/24/18 06:09 Dose: Not Given Insulin Detemir (Levemir Vial) 10 units SQ [facility] Last Admin: 10/23/18 21:42 Dose: 10 units Metoprolol Tartrate (Lopressor Injection -) 5 mg IVPUSH Q4H PRN PRN Reason: HYPERTENSION Last Admin: 10/23/18 06:44 Dose: 5 mg Valsartan (Diovan -) 160 mg PO BID [facility] Last Admin: 10/24/18 10:12 Dose: 160 mg - Objective Vital Signs: Vital Signs Temperature 98.0 F 10/24/18 06:51 Pulse Rate 78 10/24/18 06:51 Respiratory Rate 20 10/24/18 06:51 Blood Pressure 150/74 10/24/18 06:51 O2 Sat by Pulse Oximetry (%) 96 10/23/18 21:00 Constitutional: Yes: Well Nourished Eyes: Yes: WNL Neurological: Yes: Alert, Oriented, Babinski positive ...Motor Strength: WNL Labs: CBC, BMP 10/24/18 06:00 10/24/18 06:00 INR, PTT INR 0.91 (0.83-1.09) 10/19/18 11:00 Problem List - Problems (1) Cerebrovascular accident (CVA) Assessment/Plan: continue antiplatelet treatment Stroke education Physical therapy at home Follow up with neurology in 2 weeks Continue cholesterol medicine with a target cholesterol less than 170. Neurologically patient can go home Code(s): I63.9 - CEREBRAL INFARCTION, UNSPECIFIED Qualifiers: CVA mechanism: embolism Precerebral and cerebral artery: middle cerebral artery Laterality of affected vessel: right Qualified Code(s): I63.411 - Cerebral infarction due to embolism of right middle cerebral artery
--- NOTE | 2018-10-24 15:06 | PN ---
Teaching Attending Note Name of Resident: Nabeel Guzmán ATTENDING PHYSICIAN STATEMENT I saw and evaluated the patient. I reviewed the resident's note and discussed the case with the resident. I agree with the resident's findings and plan as documented. SUBJECTIVE: She is waling and has no complaints OBJECTIVE: she is walking with 4-5/5 strength in upper and lower EXT MMM No occular discharge No nasal discharge NO facial deformity CVS:S1S2 CTAB Abd:BS+, NT/ND EXT: DP pulses are weak Vital Signs - 24 hr 10/23/18 10/23/18 10/24/18 17:00 21:00 01:44 Temperature 98.1 F 98.6 F 97.5 F L Pulse Rate 68 71 77 Respiratory 18 18 20 Rate Blood Pressure 133/73 156/68 146/68 O2 Sat by Pulse 96 Oximetry (%) 10/24/18 10/24/18 10/24/18 06:51 10:00 14:00 Temperature 98.0 F 98.2 F 97.8 F Pulse Rate 78 80 74 Respiratory 20 18 18 Rate Blood Pressure 150/74 138/70 148/75 O2 Sat by Pulse 98 Oximetry (%) CBCD WBC 9.5 K/mm3 (4.0-10.0) 10/24/18 06:00 RBC 4.53 M/mm3 (3.60-5.2) 10/24/18 06:00 Hgb 12.3 GM/dL (10.7-15.3) 10/24/18 06:00 Hct 38.7 % (32.4-45.2) 10/24/18 06:00 MCV 85.2 fl (80-96) 10/24/18 06:00 MCHC 31.8 g/dl (32.0-36.0) L 10/24/18 06:00 RDW 13.2 % (11.6-15.6) 10/24/18 06:00 Plt Count 256 K/MM3 (134-434) 10/24/18 06:00 MPV 9.5 fl (7.5-11.1) 10/24/18 06:00 CMP Sodium 136 mmol/L (136-145) 10/24/18 06:00 Potassium 3.7 mmol/L (3.5-5.1) 10/24/18 06:00 Chloride 99 mmol/L (98-107) 10/24/18 06:00 Carbon Dioxide 31 mmol/L (21-32) 10/24/18 06:00 Anion Gap 7 MMOL/L (8-16) L 10/24/18 06:00 BUN 17 mg/dL (7-18) 10/24/18 06:00 Creatinine 0.9 mg/dL (0.55-1.3) 10/24/18 06:00 Creat Clearance w eGFR > 60 (>60) 10/24/18 06:00 Calcium 8.8 mg/dL (8.5-10.1) 10/24/18 06:00 Total Bilirubin 0.4 mg/dL (0.2-1) 10/24/18 06:00 AST 16 U/L (15-37) 10/24/18 06:00 ALT 16 U/L (13-61) 10/24/18 06:00 Alkaline Phosphatase 95 U/L (45-117) 10/24/18 06:00 Total Protein 6.0 g/dl (6.4-8.2) L 10/24/18 06:00 Albumin 2.9 g/dl (3.4-5.0) L 10/24/18 06:00 ASSESSMENT AND PLAN: 78yo F with HTN, DM, who presented wtih leg weakness and found to have CVA, course has been complicated with HTN urgency CVA:is on ASA, STATIN, Will F/U as OP for penitentiary monitoring for Afib evaluation. HTN emergency: it is better controlled at this time, she was evaluated by cardiology and plan for O/P followup , change in diet HFPEF: asymptomatic: Plan for better control of BP, She is on carvedilol in patient Weak DP pulses, + leg claudication will have her F/U as O/P for AVR/KHADIJAH as O/P , she is on statin, Aspirin DM:HgA1C IS 10.6, She will need to be on insulin on DC, will ask nursing staff to teach her how to do injections. the current regimen is fine to be DCed on levemir 10 units at night, Need Fu with endocrine is on asa, statin, Valsartan Low albumin: she is in no acute inflammatory state: unclear why she has low albumin, will have her F/U as OP and possible nutrition consult for both HTN/DM and low albumin education. FC DVT ppx: LOVENOX Dispo: home with home PT Current Medications Generic Name Dose Route Start Last Admin Trade Name Frelex PRN Reason Stop Dose Admin Acetaminophen 650 mg 10/19/18 14:43 Tylenol - PO Q4H PRN FEVER Amlodipine Besylate 5 mg 10/23/18 10:00 10/24/18 10:12 Norvasc - PO 5 mg DAILY [facility] Administration Aspirin 81 mg 10/20/18 10:00 10/24/18 10:12 Ecotrin - PO 81 mg DAILY [facility] Administration Atorvastatin Calcium 80 mg 10/19/18 22:00 10/23/18 21:38 Lipitor - PO 80 mg HS [facility] Administration Carvedilol 25 mg 10/22/18 22:00 10/24/18 10:12 Coreg - PO 25 mg BID [facility] Administration Enoxaparin Sodium 40 mg 10/24/18 10:00 10/24/18 10:11 Lovenox - SQ 40 mg DAILY [facility] Administration Hydrochlorothiazide 25 mg 10/23/18 10:00 10/24/18 10:12 Hctz - PO 25 mg DAILY [facility] Administration Insulin Aspart 1 vial 10/19/18 16:30 10/24/18 12:00 Novolog Vial Sliding Scale - SQ Not Given [facility] Protocol Insulin Detemir 10 units 10/21/18 22:00 10/23/18 21:42 Levemir Vial SQ 10 units HS [facility] Administration Metoprolol Tartrate 5 mg 10/19/18 14:51 10/23/18 06:44 Lopressor Injection - IVPUSH 5 mg Q4H PRN Administration HYPERTENSION Valsartan 160 mg 10/23/18 09:46 10/24/18 10:12 Diovan - PO 160 mg BID [facility] Administration Home Medications Medication Instructions Recorded Hydrochlorothiazide [Hctz -] 25 mg PO DAILY 04/21/16 Metformin HCl [Glucophage] 1,000 mg PO DAILY 04/21/16 Metoprolol Succinate [Toprol Xl] 50 mg PO DAILY 04/21/16
--- NOTE | 2018-10-24 17:35 | PN ---
Physical Exam: SUBJECTIVE: Patient seen and examined at bedside. No new complaints. No overnight events. Feels much better today. BP has been stable last 24hrs. Denies CP,GRAY, SOB, abdominal pain, nausea or vomiting. OBJECTIVE: Vital Signs Period Temp Pulse Resp BP Sys/Jeffrey Pulse Ox Last 24 Hr 97.5 F-98.6 F 71-80 18-20 138-156/68-75 96-98 General NAD CV S1 S2 RRR no murmur/rub/gallops Lungs CTA B/L no wheezing/rales/rhonchi Laboratory Results - last 24 hr 10/23/18 10/24/18 10/24/18 21:34 06:00 06:00 WBC 9.5 RBC 4.53 Hgb 12.3 Hct 38.7 MCV 85.2 MCH 27.1 MCHC 31.8 L RDW 13.2 Plt Count 256 MPV 9.5 Absolute Neuts (auto) 7.1 Neutrophils % 74.6 D Lymphocytes % 15.7 D Monocytes % 5.7 Eosinophils % 3.6 Basophils % 0.4 Nucleated RBC % 0 Sodium 136 Potassium 3.7 Chloride 99 Carbon Dioxide 31 Anion Gap 7 L BUN 17 Creatinine 0.9 Creat Clearance w eGFR > 60 POC Glucometer 223 Random Glucose 145 H Calcium 8.8 Total Bilirubin 0.4 AST 16 ALT 16 Alkaline Phosphatase 95 Total Protein 6.0 L Albumin 2.9 L 10/24/18 10/24/18 06:07 11:57 WBC RBC Hgb Hct MCV MCH MCHC RDW Plt Count MPV Absolute Neuts (auto) Neutrophils % Lymphocytes % Monocytes % Eosinophils % Basophils % Nucleated RBC % Sodium Potassium Chloride Carbon Dioxide Anion Gap BUN Creatinine Creat Clearance w eGFR POC Glucometer 139 200 Random Glucose Calcium Total Bilirubin AST ALT Alkaline Phosphatase Total Protein Albumin Active Medications Generic Name Dose Route Start Last Admin Trade Name Freq PRN Reason Stop Dose Admin Acetaminophen 650 mg 10/19/18 14:43 Tylenol - PO Q4H PRN FEVER Amlodipine Besylate 5 mg 10/23/18 10:00 10/24/18 10:12 Norvasc - PO 5 mg DAILY [facility] Administration Aspirin 81 mg 10/20/18 10:00 10/24/18 10:12 Ecotrin - PO 81 mg DAILY [facility] Administration Atorvastatin Calcium 80 mg 10/19/18 22:00 10/23/18 21:38 Lipitor - PO 80 mg HS [facility] Administration Carvedilol 25 mg 10/22/18 22:00 10/24/18 10:12 Coreg - PO 25 mg BID [facility] Administration Enoxaparin Sodium 40 mg 10/24/18 10:00 10/24/18 10:11 Lovenox - SQ 40 mg DAILY [facility] Administration Hydrochlorothiazide 25 mg 10/23/18 10:00 10/24/18 10:12 Hctz - PO 25 mg DAILY [facility] Administration Insulin Aspart 1 vial 10/19/18 16:30 10/24/18 17:05 Novolog Vial Sliding Scale - SQ 2 units ACHS [facility] Administration Protocol Insulin Detemir 10 units 10/21/18 22:00 10/23/18 21:42 Levemir Vial SQ 10 units HS [facility] Administration Metoprolol Tartrate 5 mg 10/19/18 14:51 10/23/18 06:44 Lopressor Injection - IVPUSH 5 mg Q4H PRN Administration HYPERTENSION Valsartan 160 mg 10/23/18 09:46 10/24/18 10:12 Diovan - PO 160 mg BID [facility] Administration ASSESSMENT/PLAN: 78yo F with PMH HTN, DM, who presented wtih leg weakness and found to have CVA, course has been complicated with HTN urgency Problem List - Problems (1) Cerebrovascular accident (CVA) Assessment/Plan: * MRI shows left paramedian pontine infarct and Right temporal infarct * ASA and Statin * Neurology consult appreciated. * Physical therapy walked with her; minimal assist walked 125 ft. yesterday * Not candidate for rehab- will send home with outpatient PT. * Speech therapy on board. * She does not have transportation until tomorrow morning. (2) HTN (hypertension) Assessment/Plan: BP well controlled. * Cardiology consult appreciated. Medication adjusted as below: * Carvedilol (Coreg -) 25mg PO BID * Valsartan (Diovan -) 160 PO BID * Amlodipine Besylate (Norvasc -) 5 mg POCarvedilol (Coreg -) 25 mg PO BID * Hydrochlorothiazide (Hctz -) 25 mg PO DAILY * crackles heard on exam will obtain stat CXR r/o fluid overload. (3) Diabetes Assessment/Plan: * ADA diet * BGM ACHS * ISS ACHS * HgbA1C >10 will need insulin therapy upon discharge. (4) HLD (hyperlipidemia) Assessment/Plan: continue Statin Visit type - Emergency Visit Emergency Visit: Yes ED Registration Date: 10/19/18 Care time: The patient presented to the Emergency Department on the above date and was hospitalized for further evaluation of their emergent condition. - New Patient This patient is new to me today: No - Critical Care Critical Care patient: No
[2018-10-24] MEDS: INSULIN (LEVEMIR) 100 UNITS/ML UNITS SQ SCH (21:50)
[2018-10-24] MEDS: ATORVASTATIN CA 80 MG TABLET (FP) PO SCH (21:50)
[2018-10-25] MEDS: INSULIN SLIDING SCALE (NOVOLOG) 1 VIAL SQ SCH ×4 (06:01→21:51)
[2018-10-25] MEDS: ENOXAPARIN NA (PORCINE) 40 MG/0.4 ML DISP.SYRIN SQ SCH (09:20)
[2018-10-25] MEDS: ASPIRIN COATED 81 MG TABLET.EC PO SCH (09:21)
[2018-10-25] MEDS: VALSARTAN 80 MG TABLET (UD) PO SCH ×2 (09:21→21:50)
[2018-10-25] MEDS: CARVEDILOL 25 MG TABLET (FP) PO SCH ×2 (09:21→21:50)
[2018-10-25] MEDS: HYDROCHLOROTHIAZIDE 25 MG TABLET (FP) PO SCH (09:21)
[2018-10-25] MEDS: amLODIPine BESYLATE 5 MG TABLET (FP) PO SCH (09:21)
--- NOTE | 2018-10-25 12:24 | PN ---
Progress Note (short form) - Note Progress Note: Chief Complaint: Events noted, notes reviewed, denies any chest pain or dyspnea , complaining of right thumb discomfort and tenderness, blood pressure noted improved History of Present Illness: Seen and examined on telemetry. Events noted, notes reviewed, denies any chest pain or dyspnea, complaining of right thumb discomfort and tenderness, blood pressure noted improved Echocardiography revealed normal LV size and function with no significant valvular pathology - Current Medication List Current Medications Acetaminophen (Tylenol -) 650 mg PO Q4H PRN PRN Reason: FEVER Amlodipine Besylate (Norvasc -) 5 mg PO DAILY [facility] Last Admin: 10/25/18 09:21 Dose: 5 mg Aspirin (Ecotrin -) 81 mg PO DAILY [facility] Last Admin: 10/25/18 09:21 Dose: 81 mg Atorvastatin Calcium (Lipitor -) 80 mg PO HS [facility] Last Admin: 10/24/18 21:50 Dose: 80 mg Carvedilol (Coreg -) 25 mg PO BID [facility] Last Admin: 10/25/18 09:21 Dose: 25 mg Enoxaparin Sodium (Lovenox -) 40 mg SQ DAILY [facility] Last Admin: 10/25/18 09:20 Dose: 40 mg Hydrochlorothiazide (Hctz -) 25 mg PO DAILY [facility] Last Admin: 10/25/18 09:21 Dose: 25 mg Insulin Aspart (Novolog Vial Sliding Scale -) 1 vial SQ [facility]; Protocol Last Admin: 10/25/18 11:23 Dose: 2 units Insulin Detemir (Levemir Vial) 10 units SQ [facility] Last Admin: 10/24/18 21:50 Dose: 10 units Metoprolol Tartrate (Lopressor Injection -) 5 mg IVPUSH Q4H PRN PRN Reason: HYPERTENSION Last Admin: 10/23/18 06:44 Dose: 5 mg Valsartan (Diovan -) 160 mg PO BID [facility] Last Admin: 10/25/18 09:21 Dose: 160 mg Review of Systems - Review of Systems Constitutional: denies: Chills or Fever Cardiovascular: as noted above Gastrointestinal: denies: Nausea, Vomiting, Diarrhea, Constipation or Abdominal Pain Genitourinary: No symptoms reported Neurological: As noted above Vital Signs: Last Vital Signs Temp Pulse Resp BP Pulse Ox 97.0 F L 74 14 144/76 96 10/25/18 09:00 10/25/18 09:00 10/25/18 09:00 10/25/18 09:00 10/25/18 09:00 Intake & Output 10/22/18 10/23/18 10/24/18 10/25/18 23:59 23:59 23:59 23:59 Intake Total 762 462 900 270 Balance 762 462 900 270 Constitutional: No Distress, Calm Neck: Supple Negative JVD Respiratory: Clear to A&P Bilaterally Cardiovascular: S1 S2 Regular Rate and Rhythm Gastrointestinal: Soft Benign Normal Bowel Sounds Ext: No Edema Right Thumb Metacarpo-phalangeal Joint Tenderness Labs: CBC, BMP 10/24/18 06:00 10/24/18 06:00 Assessment/Plan ASSESSMENT: 1. Acute stroke 2. Hypertensive cardiovascular disease, labile blood pressure at goal 3. DM 4. Hypercholesterolemia 5. NSVT 6. Clinical presentation suggestive of acute gouty arthritis PLAN: 1. Continue ASA 2. Continue Lipitor 3. Continue Carvedilol 4. Continue Diovan 5. Discontinue HCTZ in view of the above presentation with acute gouty arthritis 6. Continue Norvasc 7. As outlined in prior notes recommended extended monitoring (possible ILR) as outpatient to rule out PAF as potential culprit to the above noted presentation/ stroke 8. Evaluation and management of gout as per the primary team Maia Schulz M.D.
[2018-10-25] MEDS ORDERED: ACETAMINOPHEN WITH CODEINE 300MG/30MG TABLET PO PRN (16:11)
[2018-10-25] MEDS: predniSONE 20 MG TABLET (UD) PO SCH (16:24)
--- NOTE | 2018-10-25 16:37 | PN ---
Physical Exam: SUBJECTIVE: Patient seen and examined, she is complaining of pain in her 1st MTP joint. She has also been thought on how to give herself SQ insulin injections. OBJECTIVE: Vital Signs Period Temp Pulse Resp BP Sys/Jeffrey Pulse Ox Last 24 Hr 97.0 F-98.6 F 65-78 14-20 128-161/54-96 96-98 she is in no distress Has erythema and swelling int he 1st MTP. no other joint evolvement STRENGH 4-5/5 strength in upper and lower EXT MMM No occular discharge No nasal discharge NO facial deformity CVS:S1S2 CTAB Abd:BS+, NT/ND EXT: DP pulses are weak Laboratory Results - last 24 hr 10/24/18 10/24/18 10/25/18 16:57 21:45 05:53 POC Glucometer 177 247 97 10/25/18 11:16 POC Glucometer 164 Active Medications Generic Name Dose Route Start Last Admin Trade Name Freq PRN Reason Stop Dose Admin Acetaminophen 650 mg 10/19/18 14:43 Tylenol - PO Q4H PRN FEVER Acetaminophen/Codeine Phosphate 1 tab 10/25/18 16:11 Tylenol # 3 - PO Q4H PRN PAIN LEVEL 1-5 Amlodipine Besylate 5 mg 10/23/18 10:00 10/25/18 09:21 Norvasc - PO 5 mg DAILY JOCELINE Administration Aspirin 81 mg 10/20/18 10:00 10/25/18 09:21 Ecotrin - PO 81 mg DAILY JOCELINE Administration Atorvastatin Calcium 80 mg 10/19/18 22:00 10/24/18 21:50 Lipitor - PO 80 mg HS JOCELINE Administration Carvedilol 25 mg 10/22/18 22:00 10/25/18 09:21 Coreg - PO 25 mg BID JOCELINE Administration Enoxaparin Sodium 40 mg 10/24/18 10:00 10/25/18 09:20 Lovenox - SQ 40 mg DAILY JOCELINE Administration Insulin Aspart 1 vial 10/19/18 16:30 10/25/18 16:30 Novolog Vial Sliding Scale - SQ Not Given ACHS [facility] Protocol Insulin Detemir 10 units 10/21/18 22:00 10/24/18 21:50 Levemir Vial SQ 10 units HS JOCELINE Administration Metoprolol Tartrate 5 mg 10/19/18 14:51 10/23/18 06:44 Lopressor Injection - IVPUSH 5 mg Q4H PRN Administration HYPERTENSION Prednisone 40 mg 10/25/18 16:15 10/25/18 16:24 Deltasone - PO 40 mg DAILY JOCELINE Administration Valsartan 160 mg 10/23/18 09:46 10/25/18 09:21 Diovan - PO 160 mg BID JOCELINE Administration ASSESSMENT/PLAN: 78yo F with HTN, DM, who presented wtih leg weakness and found to have CVA, course has been complicated with HTN urgency Gout attack likely triggered with diuretics, will give prednisone 40 mg po for 1 -2 days, will start on alluporinol after that, will control pain with tylenol 3.will have her F/u with rheumatology as O/P, Will ask nutrition to teach about diet for gout. 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 HTN emergency: it is better controlled at this time, she was evaluated by cardiology and plan for O/P followup , change in diet HFPEF: asymptomatic: Plan for better control of BP, She is on carvedilol in patient Weak DP pulses, + leg claudication will have her F/U as O/P for AVR/KHADIJAH as O/P , she is on statin, Aspirin DM:HgA1C IS 10.6, She will need to be on insulin on DC, will ask nursing staff to teach her how to do injections. the current regimen is fine to be DCed on levemir 10 units at night, Need Fu with endocrine is on asa, statin, Valsartan Low albumin: she is in no acute inflammatory state: unclear why she has low albumin, will have her F/U as OP and possible nutrition consult for both HTN/DM and low albumin education. FC DVT ppx: LOVENOX Dispo: home with home PT and VNS for insulin education Visit type - Emergency Visit Emergency Visit: Yes ED Registration Date: 10/19/18 Care time: The patient presented to the Emergency Department on the above date and was hospitalized for further evaluation of their emergent condition. - New Patient This patient is new to me today: No - Critical Care Critical Care patient: No - Discharge Referral Referred to [facility] Med P.C.: No
[2018-10-25] MEDS: ATORVASTATIN CA 80 MG TABLET (FP) PO SCH (21:51)
[2018-10-25] MEDS: INSULIN (LEVEMIR) 100 UNITS/ML UNITS SQ SCH (21:51)
[2018-10-26 05:51] VITALS: PULSE 73
[2018-10-26] MEDS: INSULIN SLIDING SCALE (NOVOLOG) 1 VIAL SQ SCH ×2 (06:19→11:56)
[2018-10-26 09:06] VITALS: BP 167/71; TEMP 97.6
[2018-10-26] MEDS: CARVEDILOL 25 MG TABLET (FP) PO SCH (09:14)
[2018-10-26] MEDS: VALSARTAN 80 MG TABLET (UD) PO SCH (09:14)
[2018-10-26] MEDS: ENOXAPARIN NA (PORCINE) 40 MG/0.4 ML DISP.SYRIN SQ SCH (09:14)
[2018-10-26] MEDS: amLODIPine BESYLATE 5 MG TABLET (FP) PO SCH (09:14)
[2018-10-26] MEDS: ASPIRIN COATED 81 MG TABLET.EC PO SCH (09:15)
[2018-10-26] MEDS: predniSONE 20 MG TABLET (UD) PO SCH (09:18)
--- NOTE | 2018-10-26 09:36 | PN ---
Progress Note (short form) - Note Progress Note: Chief Complaint: Events noted, notes reviewed, denies any chest pain or dyspnea , right thumb discomfort improved, blood pressure measurements noted improved History of Present Illness: Seen and examined on telemetry. Events noted, notes reviewed, denies any chest pain or dyspnea, right thumb discomfort improved, blood pressure measurements noted improved Echocardiography revealed normal LV size and function with no significant valvular pathology - Current Medication List Current Medications Acetaminophen (Tylenol -) 650 mg PO Q4H PRN PRN Reason: FEVER Acetaminophen/Codeine Phosphate (Tylenol # 3 -) 1 tab PO Q4H PRN PRN Reason: PAIN LEVEL 1-5 Amlodipine Besylate (Norvasc -) 5 mg PO DAILY [facility] Last Admin: 10/26/18 09:14 Dose: 5 mg Aspirin (Ecotrin -) 81 mg PO DAILY [facility] Last Admin: 10/26/18 09:15 Dose: 81 mg Atorvastatin Calcium (Lipitor -) 80 mg PO [facility] Last Admin: 10/25/18 21:51 Dose: 80 mg Carvedilol (Coreg -) 25 mg PO BID [facility] Last Admin: 10/26/18 09:14 Dose: 25 mg Enoxaparin Sodium (Lovenox -) 40 mg SQ DAILY [facility] Last Admin: 10/26/18 09:14 Dose: 40 mg Insulin Aspart (Novolog Vial Sliding Scale -) 1 vial SQ [facility]; Protocol Last Admin: 10/26/18 06:19 Dose: 2 units Insulin Detemir (Levemir Vial) 10 units SQ [facility] Last Admin: 10/25/18 21:51 Dose: 10 units Metoprolol Tartrate (Lopressor Injection -) 5 mg IVPUSH Q4H PRN PRN Reason: HYPERTENSION Last Admin: 10/23/18 06:44 Dose: 5 mg Prednisone (Deltasone -) 40 mg PO DAILY [facility] Last Admin: 10/26/18 09:18 Dose: Not Given Valsartan (Diovan -) 160 mg PO BID [facility] Last Admin: 10/26/18 09:14 Dose: 160 mg Review of Systems - Review of Systems Constitutional: denies: Chills or Fever Cardiovascular: as noted above Gastrointestinal: denies: Nausea, Vomiting, Diarrhea, Constipation or Abdominal Pain Genitourinary: No symptoms reported Neurological: As noted above Vital Signs: Last Vital Signs Temp Pulse Resp BP Pulse Ox 97.6 F 73 16 167/71 92 L 10/26/18 09:04 10/26/18 05:45 10/26/18 09:04 10/26/18 09:04 10/25/18 21:00 Intake & Output 10/23/18 10/24/18 10/25/18 10/26/18 23:59 23:59 23:59 23:59 Intake Total 436 338 9834 Balance 910 601 1263 Constitutional: No Distress, Calm Neck: Supple Negative JVD Respiratory: Clear to A&P Bilaterally Cardiovascular: S1 S2 Regular Rate and Rhythm Gastrointestinal: Soft Benign Normal Bowel Sounds Ext: No Edema Right Thumb Metacarpo-phalangeal Joint Tenderness Improved Labs: CBC, BMP 10/24/18 06:00 10/24/18 06:00 Assessment/Plan ASSESSMENT: 1. Acute stroke 2. Hypertensive cardiovascular disease, labile blood pressure not at goal 3. DM 4. Hypercholesterolemia 5. NSVT 6. Acute gouty arthritis, resolving PLAN: 1. Continue ASA 2. Continue Lipitor 3. Continue Carvedilol 4. Continue Diovan 5. Continue Norvasc and titrate dosage 6. As outlined in prior notes recommended extended monitoring (possible ILR) as outpatient to rule out PAF as potential culprit to the above noted presentation/ stroke 7. Patient can be D/C home from the cardiovascular point of view Maia Schulz M.D.
--- NOTE | 2018-10-26 12:49 | DS ---
Physical Exam: SUBJECTIVE: Patient seen and examined, She is in no distress today and the pain has tomb pain ( goat attack ) has resolved OBJECTIVE: Vital Signs Period Temp Pulse Resp BP Sys/Jeffrey Pulse Ox Last 24 Hr 97.6 F-98.5 F 69-78 16-18 121-167/59-79 92-95 PHYSICAL EXAM GShe is sitting in chair in no distress MMM Strength 4-5/5 left upper and lower EXT, no other focal neuralgic deficits at this time. CVS:S1S2, regular CTAB Abd:BS+ NT/ND has decreased DP pulses B/L LABS Laboratory Results - last 24 hr 10/25/18 10/25/18 10/26/18 16:28 21:49 05:42 POC Glucometer 144 346 198 10/26/18 11:41 POC Glucometer 218 HOSPITAL COURSE: She is a 78 Y/O F W HTN, CAD, DM( uncontrolled, started on insulin in the hospital for A1C>10), OA. She P/W sluirred speach and possible left arm weakness , HCT with no acute bleed, per neuro note the stroke scale was 3 adn she was not a candidate for TPA, as patient's last known normal was 6 PM Saturday, October 18. and Left arm weakness was getting better according to the emergency room doctor and the family member. her BP also was improved( initially HTN), MRI: Echocardiography revealed normal LV size and function with no significant valvular pathology,she has NSVT on tele. She was started on ASA, Atorvastatin 80 mg qhs, insulin levemir 10 units at night, amlodipine 5 daily and continuation of metformin, metoprolol home dose, HCTZ 25 mg po daily She will get VNS for PT as well as HTN and DM management( new insulin user) She also developed an episode of gout attack in the first tomb which resolved with 1 dose of prednisone and she will follow up for further out patient management by PMD. She is to follow up with cardiology for out patient jail rhythm monitoring as well as evaluation with KHADIJAH for PVD on DC she has had no residual focal neurologic deficit at the time of DC Date of Admission:10/19/18 Date of Discharge: 10/26/18 Minutes to complete discharge: 30 Discharge Summary Reason For Visit: VENTRICULAR TACHYCARDIA, ELEVATED BLOOD PRESSURE, Current Active Problems Cerebrovascular accident (CVA) (Acute) Diabetes (Acute) HLD (hyperlipidemia) (Acute) HTN (hypertension) (Acute) NSVT (nonsustained ventricular tachycardia) (Acute) Paroxysmal atrial tachycardia (Acute) V-tach (Acute) - Instructions Diet, Activity, Other Instructions: BACK TO YOUR NORMAL ACTIVITY Referrals: Gamaliel Blackwell MD [Primary Care Provider] - Disposition: HOME - Home Medications Comprehensive Discharge Medication List: Ambulatory Orders Hydrochlorothiazide [Hctz -] 25 mg PO DAILY 04/21/16 Metformin HCl [Glucophage] 1,000 mg PO DAILY 04/21/16 Metoprolol Succinate [Toprol Xl] 50 mg PO DAILY 04/21/16 Amlodipine Besylate [Norvasc -] 5 mg PO DAILY #30 tablet 10/26/18 Aspirin Coated [Ecotrin -] 81 mg PO DAILY #30 tablet.ec 10/26/18 Atorvastatin Ca [Lipitor] 80 mg PO HS #30 tablet 10/26/18 Insulin (Levemir) [Levemir Vial] 10 units SQ HS #30 units 10/26/18 Valsartan [Diovan] 160 mg PO BID 30 Days #30 tablet 10/26/18 This patient is new to me today: Yes Date on this admission: 10/26/18 Emergency Visit: No Critical Care patient: No - Discharge Referral Referred to [facility] Med P.C.: No
== END 2018-10-26 14:54 | disposition home health service (06) | DRG 65 ==
LOC: JER 10:51 → JERBED 14:06 → J4S 15:34
PROVIDERS: ADMIT Internal Medicine; ATTEND Internal Medicine
DX: I63.411 Cerebral infarction due to embolism of right middle cerebral artery (principal); I47.2 Ventricular tachycardia; I50.32 Chronic diastolic (congestive) heart failure; Z79.84 Long term (current) use of oral hypoglycemic drugs; R29.703 NIHSS score 3; E78.5 Hyperlipidemia, unspecified; I25.10 Atherosclerotic heart disease of native coronary artery without angina pectoris; F03.90 Unspecified dementia, unspecified severity, without behavioral disturbance, psychotic disturbance, mood disturbance, and anxiety; M19.90 Unspecified osteoarthritis, unspecified site; I11.9 Hypertensive heart disease without heart failure; I16.0 Hypertensive urgency; I11.0 Hypertensive heart disease with heart failure; M10.9 Gout, unspecified; E11.65 Type 2 diabetes mellitus with hyperglycemia
CPT/HCPCS: 36415; 70450-TC; 70496-TC; 70551-TC; 71045-TC-FY; 80048; 80053; 81003; 81015; 82465; 82550; 82962; 83036; 83090; 83718; 83721; 83735; 84100; 84478; 84484; 85025; 85027; 85610; 85651; 86850; 86900; 86901; 93005; 93010; 93306-TC; 93880-TC; 97116-GP; 97161-GP; 99285-25; J0735; J7030

== ENCOUNTER 2018-12-04 12:37 | Emergency (ER) | payer MEDICARE, OTHER ==
[2018-12-04] MEDS ORDERED: SODIUM CHLORIDE 1,000 ML IV SCH (12:45)
--- NOTE | 2018-12-04 12:47 | PDOC ---
History of Present Illness - General Chief Complaint: CVA/TIA Stated Complaint: CVA/TIA Time Seen by Provider: 12/04/18 12:41 History Source: Patient, EMS, Family Exam Limitations: No Limitations - History of Present Illness Initial Comments: 12/04/18 12:49 78YOF with h/o prior CVA (admitted to [facility] in 10/2018), DM, HTN, HLD who was BIBEMS for a fall at 9:30am this morning with concurrent onset of mildly slurred speech, mild left facial droop, and mild left arm/leg weakness which has been present in the past but which she states is worsened now. Family notes that she was acting normally prior to the fall at 9:30 am. EMS reports the patient's tongue was deviating to the right en route, making it difficult for her to speak clearly. They measured her FSBG to be in the 200s, and her systolic BP to be 188. The patient additionally notes left hip pain. Past History - Past Medical History Allergies/Adverse Reactions: Allergies Allergy/AdvReac Type Severity Reaction Status Date / Time No Known Allergies Allergy Verified 10/19/18 11:03 Home Medications: Ambulatory Orders Hydrochlorothiazide [Hctz -] 25 mg PO DAILY 04/21/16 Metformin HCl [Glucophage] 1,000 mg PO DAILY 04/21/16 Metoprolol Succinate [Toprol Xl] 50 mg PO DAILY 04/21/16 Amlodipine Besylate [Norvasc -] 5 mg PO DAILY #30 tablet 10/26/18 Aspirin Coated [Ecotrin -] 81 mg PO DAILY #30 tablet.ec 10/26/18 Atorvastatin Ca [Lipitor] 80 mg PO HS #30 tablet 10/26/18 Insulin (Levemir) [Levemir Vial] 10 units SQ HS #30 units 10/26/18 Valsartan [Diovan] 160 mg PO BID 30 Days #30 tablet 10/26/18 Anemia: No Asthma: No Cancer: No Cardiac Disorders: Yes CVA: No COPD: No CHF: No Dementia: Yes Diabetes: Yes GI Disorders: No HTN: Yes Hypercholesterolemia: No Liver Disease: No Seizures: No Thyroid Disease: No - Surgical History Abdominal Surgery: Yes (HERNIA) Appendectomy: No Cardiac Surgery: No Cholecystectomy: No Lung Surgery: No Neurologic Surgery: No Orthopedic Surgery: No - Suicide/Smoking/Psychosocial Hx Smoking History: Never smoked Have you smoked in the past 12 months: No Number of Cigarettes Smoked Daily: 0 Cigars Per Day: 0 Hx Alcohol Use: No Drug/Substance Use Hx: No Substance Use Type: None Review of Systems - Review of Systems Able to Perform ROS?: Yes Comments:: 12/04/18 12:59 GEN: no fever, chills, malaise, generalized weakness, or weight change HEENT: no ear pain, sore throat, vision change, or eye pain CV: no chest pain, palpitations, lightheadedness, syncope, or edema RESP: no cough, wheezing, or SOB GI: no abdominal pain, nausea, vomiting, diarrhea, constipation, or white/black/ bloody stool : no dysuria, hematuria, incontinence, retention, bleeding, or discharge MSK: no neck/back pain, muscle weakness/pain, or joint swelling/pain NEURO: focal weakness, slurred speech, no headache, seizure, vertigo, numbness, or tingling PSYCH: no substance use, no behavior change SKIN: no jaundice, no rash ROS otherwise negative except as noted in HPI *Physical Exam - Physical Exam Comments: 12/04/18 13:02 GENERAL: well-appearing, pleasant, Ghanaian-speaking, A/Ox4, no distress, answers questions appropriately but with slightly slurred speech HEENT: PERRLA, EOMI, moist mucous membranes NECK/BACK: no midline ttp, no spinal stepoff or deformity, no hematoma, full ROM , neck supple CARDIOVASCULAR: regular rate/rhythm, normal S1S2, no MGR, strong peripheral pulses, capillary refill <2 seconds, extremities wwp, no edema LUNGS/RESPIRATORY: no respiratory distress, CTAB GI/ABDOMEN: symmetric [id number], normoactive BS, soft, no ttp, no midline pulsatile masses : no CVA tenderness EXTREMITIES: no muscle atrophy, no acute deformity, no edema SKIN: warm and dry, no pallor, no jaundice, no rash, no bruising, no skin breakdown, no cuts, no lesions NEUROLOGICAL: left mild facial droop, LUE and LLE strength 5/5 proximally and distally, RUE and RLE strength 5/5 proximally and distally, tongue deviation to the right, NIHSS 4, GCS 15 NIH Stroke Scale - Last Known Well Date/Time & Onset Date Last Known Well: 12/04/18 Time Last Known Well: 09:30 - Initial Evaluation Level of consciousness: Alert Ask patient the month and their age: Answers both correctly Ask patient to open & close eyes; make fist and let go: Obeys both correctly Best gaze (horizontal eye movement): Normal Visual field testing: No visual field loss Facial paresis (Show teeth/raise eyebrows/close eyes tight): Minor paralysis ( flattened nasolabial fold, asymmetry on smiling) Motor Function: Left Arm: Drift Motor Function: Right Arm: Normal (extends arm 90 (or 45) degrees for 10 seconds without drift Motor Function: Left Leg: Drift Motor Function: Right Leg: Normal (extends leg 30 degrees for 5 seconds without drift) Limb Ataxia: No ataxia Sensory(Use pinprick test arms,legs,trunk,face/side to side): Normal Best language (Describe picture, name items, read sentences): No Aphasia Dysarthria (read several words): Mild to moderate slurring of words Extinction and Inattention: No abnormality - Total Score NIH Stroke Scale Score: 4 tPA Exclusion checklist 3-4.5h - Time Elapsed Date last known well: 12/04/18 Time last known well: 09:30 Elaspsed time: Day(s) and 4 Hour(s) and 57 Minutes - Thrombolytic Therapy Candidate Is patient eligible for thrombolytic therapy: No - Exclusion Criteria 3-4.5 hr SBP greater than 185 or DBP greater than 110mmHg despite tx: Yes Recent IC/spinal surgery,head trauma or stroke<3mos.: Yes Hx IC hemorrhage, IC neoplasm, AV malformation or aneurysm: No Active internal bleeding: No Blding diathesis(low plt ct, inc PTT,INR>1.7 or use of NOAC): No Symptoms suggest subarachnoid hemorrhage: No CT demonstrates multilobar infarct(>1/3 cerebral hemiphere): No Arterial puncture at noncompressible site in previous 7 days: No Blood glucose concentration less than 50mg/dL (2.7mmol/L): No - Relative Exclusion Criteria 3-4.5 hr Life expectancy <1 yr or severe co-morbid illness: No : No Patient/family refused: No Rapid improvement: No Stroke severity too mild: Yes Recent acute AL (w/in previous 3 months): No Seizure at onset with postictal residual neuro impairments: No Major surgery or serious trauma w/in previous 14 days: No Recent GI or hemorrhage (w/in previous 21 days): No - Add'l Relative Exclusion 3-4.5 hr Age > 80: No Hx of both diabetes AND prior ischemic stroke: Yes Taking an oral anticoagulant regardless of INR: No NIHSS >25: No - Ineligibility reason(s) Reasons No tPA given: See reason(s) noted above Critical Care Time/MDM Note - Medical Decision Making Note: Adult patient p/w acute neurologic deficit. The time of onset was 0930 and they are within the tPA window. Code Márquez is called. Exam: As noted in Physical Exam section. DDX IBNLT: CVA/TIA, hypoglycemia, limb ischemia (e.g. thromboembolism or dissection), subclavian steal, spinal cord compression, cauda equina syndrome, W/U ordered: None TX ordered: IV, O2, Monitor, IVF Review of her [facility] records indicated she was admitted for CVA in 10/2018. 12/04/18 12:[address] De La Rosa. We discussed the case and the fact that the patient is within the tPA window. However NIHSS is 4, she was admitted for CVA in 10/2018, disqualifies her from tPA. Head CT: Nothing acute EKG: Reviewed; results as noted in ECG Review section. CXR: Laboratory Tests 12/04/18 12/04/18 12/04/18 12:50 12:50 12:50 WBC 11.0 H RBC 4.75 Hgb 13.2 Hct 39.6 MCV 83.4 MCH 27.7 MCHC 33.2 RDW 13.3 Plt Count 308 D MPV 9.5 Absolute Neuts (auto) 9.6 H Neutrophils % 87.3 H Lymphocytes % 9.0 D Monocytes % 2.7 L Eosinophils % 0.4 D Basophils % 0.6 Nucleated RBC % 0 PT with INR 11.20 INR 0.95 Sodium 136 Potassium 3.9 Chloride 99 Carbon Dioxide 28 Anion Gap 10 BUN 12 Creatinine 0.8 Creat Clearance w eGFR > 60 Random Glucose 263 H Calcium 9.0 Total Bilirubin 0.3 AST 16 ALT 23 Alkaline Phosphatase 108 Creatine Kinase 62 Troponin I < 0.02 Total Protein 7.1 Albumin 3.4 Triglycerides 82 Cholesterol 129 Total LDL Cholesterol 61 HDL Cholesterol 49 Blood Type Antibody Screen 12/04/18 12:50 WBC RBC Hgb Hct MCV MCH MCHC RDW Plt Count MPV Absolute Neuts (auto) Neutrophils % Lymphocytes % Monocytes % Eosinophils % Basophils % Nucleated RBC % PT with INR INR Sodium Potassium Chloride Carbon Dioxide Anion Gap BUN Creatinine Creat Clearance w eGFR Random Glucose Calcium Total Bilirubin AST ALT Alkaline Phosphatase Creatine Kinase Troponin I Total Protein Albumin Triglycerides Cholesterol Total LDL Cholesterol HDL Cholesterol Blood Type O POSITIVE Antibody Screen Negative Reassessment: exam unchanged Repeat VS: 12/04/18 14:[address] [facility], Dr. Arriaga with stroke team, and [facility] [place] [facility] attending. Patient accepted in transfer to Dr. Arriaga, going ED-ED ALS. Transfer paperwork completed and signed by all indicated parties. 12/04/18 15:17 EMS crew arrives and transfers Pt to ambulance without issue. *DC/Admit/Observation/Transfer Diagnosis at time of Disposition: Cerebrovascular accident (CVA) Qualifiers: CVA mechanism: unspecified Qualified Code(s): I63.9 - Cerebral infarction, unspecified - Discharge Dispostion Disposition: TRANSFER ACUTE CARE/OTHER HOSP Condition at time of disposition: Guarded - Referrals Referrals: Gamaliel Blackwell MD [Primary Care Provider] - - Patient Instructions - Post Discharge Activity - Transfer to Acute Care Facility Receiving Facility: [facility] Accepting Physician:: Bart
[2018-12-04 13:17] LABS: BASO % 0.6 % (0-2.0); EOS % 0.4 % (0-4.5); HEMATOCRIT 39.6 % (32.4-45.2); HEMOGLOBIN 13.2 GM/dL (10.7-15.3); MCH 27.7 pg (25.7-33.7); MCHC 33.2 g/dl (32.0-36.0); MEAN CELL VOLUME 83.4 fl (80-96); MEAN PLT VOLUME 9.5 fl (7.5-11.1); MONO % 2.7 % (3.8-10.2); NEUT % 87.3 % (42.8-82.8); PLATELET COUNT 308 K/MM3 (134-434); RBC 4.75 M/mm3 (3.60-5.2); RDW 13.3 % (11.6-15.6)
[2018-12-04 13:33] LABS: INR 0.95 (0.83-1.09); PROTHROMBIN TIME (PATIENT) 11.2 SEC (9.7-13.0)
[2018-12-04 13:53] LABS: ALBUMIN 3.4 g/dl (3.4-5.0); ALK PHOS 108 U/L (45-117); ANION GAP 10 MMOL/L (8-16); BILIRUBIN,TOTAL 0.3 mg/dL (0.2-1); BLOOD UREA NITROGEN 12 mg/dL (7-18); CHLORIDE 99 mmol/L (98-107); CHOLESTEROL 129 mg/dL (50-200); CO2 28 mmol/L (21-32); CREATININE 0.8 mg/dL (0.55-1.3); GLUCOSE,RANDOM 263 mg/dL (74-106); HDL CHOLESTEROL 49 mg/dL (40-60); POTASSIUM 3.9 mmol/L (3.5-5.1); SGOT/AST 16 U/L (15-37); SGPT/ALT 23 U/L (13-61); SODIUM 136 mmol/L (136-145); TOT PROT 7.1 g/dl (6.4-8.2); TRIGLYCERIDES 82 mg/dL (0-150)
--- NOTE | 2018-12-04 14:58 | PDOC ---
Attending Attestation - Resident Resident Name: Daria Henning - ED Attending Attestation I have performed the following: I have examined & evaluated the patient, The case was reviewed & discussed with the resident, I agree w/resident's findings & plan - HPI HPI: 12/04/18 14:52 78-year-old female with history of CVA in October 2018 with residual left- sided arm and leg weakness but return to the near baseline functionality and ADLs now p/w L arm and leg weakness noted upon awakening at 830am. pt lsat known well at 3am when she went to the bathroom, upon awakening at 830am noted she was unable to stand. family activated EMS at 930 - Physicial Exam PE: 12/04/18 14:56 Vitals as noted Alert, speaking clearly Positive left facial droop, 4 out of 5 left arm strength, 3 out of 5 left leg strain - Critical Care Time Total Critical Care Time: 90 Critical Care Statement: The care of this patient involved high complexity decision making to prevent further life threatening deterioration of the patient 's condition and/or to evaluate & treat vital organ system(s) failure or risk of failure. - Medical Decision Making 12/04/18 14:57 78-year-old female with recent CVA in October but returned to baseline functionality now with acute onset CVA with last known well at 3 AM, approximately 9 hours prior to arrival. Not TPA candidate given recent ischemic stroke and outside of window, stroke protocol initiated which revealed normal labs and CT without acute pathology. Discussed with interventional neurology team at [facility] regarding whether patient remains a mechanical thrombectomy candidate given her recent ischemic CVA, they recommend transfer for additional imaging and potential thrombectomy. Accepted by Dr. Silva Heart Score/ECG Review #1 ECG reviewed & interpreted by me at: 13:55 General ECG Interpretation: Sinus Rhythm, Normal Rate (75), Normal Intervals ( qtc 431), No acute ischemic changes (nonspecific t wave flattening) NIH Stroke Scale - Last Known Well Date/Time & Onset Date Last Known Well: 12/04/18 Time Last Known Well: 03:00 - Initial Evaluation Level of consciousness: Alert Ask patient the month and their age: Answers both correctly Ask patient to open & close eyes; make fist and let go: Obeys both correctly Best gaze (horizontal eye movement): Normal Visual field testing: No visual field loss Facial paresis (Show teeth/raise eyebrows/close eyes tight): Minor paralysis ( flattened nasolabial fold, asymmetry on smiling) Motor Function: Left Arm: Drift Motor Function: Right Arm: Normal (extends arm 90 (or 45) degrees for 10 seconds without drift Motor Function: Left Leg: Some effort against gravity Motor Function: Right Leg: Normal (extends leg 30 degrees for 5 seconds without drift) Limb Ataxia: No ataxia Sensory(Use pinprick test arms,legs,trunk,face/side to side): Normal Best language (Describe picture, name items, read sentences): No Aphasia Dysarthria (read several words): Normal articulation Extinction and Inattention: No abnormality - Total Score NIH Stroke Scale Score: 4
[2018-12-04 15:33] VITALS: BMI 25.4
--- NOTE | 2018-12-04 16:13 | EKG ---
Test Reason : Blood Pressure : / mmHG Vent. Rate : 075 BPM Atrial Rate : 075 BPM P-R Int : 150 ms QRS Dur : 072 ms QT Int : 386 ms P-R-T Axes : 062 018 -15 degrees QTc Int : 431 ms NORMAL SINUS RHYTHM NONSPECIFIC T WAVE ABNORMALITY ABNORMAL ECG WHEN COMPARED WITH ECG OF 19-OCT-2018 11:03, NONSPECIFIC T WAVE ABNORMALITY NOW EVIDENT IN INFERIOR LEADS Confirmed by JAY LUCAS, DARNELL ([id number]) on 12/04/2018 4:12:58 PM Referred By: Confirmed By:DARNELL THOMPSON MD
[2018-12-04 17:03] VITALS: BP 138/67; PULSE 74; TEMP 97.6
== END 2018-12-04 14:45 | disposition short-term general hospital (02) ==
LOC: JER 12:37
DX: I10 Essential (primary) hypertension (principal); I51.9 Heart disease, unspecified; F03.90 Unspecified dementia, unspecified severity, without behavioral disturbance, psychotic disturbance, mood disturbance, and anxiety
CPT/HCPCS: 36415; 70450-TC; 71045-TC-FY; 73523-TC-FY; 80053; 82465; 82550; 83718; 83721; 84478; 84484; 85025; 85610; 86850; 86900; 86901; 93005; 93010; 99285-25; J7030